=== PATIENT | female | born 1940 | race Caucasian/White ===

== ENCOUNTER 2016-08-12 16:37 | Emergency (ER) | payer OTHER, MEDICAID ==
--- NOTE | 2016-08-12 16:53 | EDPHY ---
H & P Time Seen by Provider: 08/12/16 16:51 HPI/ROS: CHIEF COMPLAINT: Passing stool through the vagina HISTORY OF PRESENT ILLNESS: This 76-year-old woman has a history of bladder prolapse but noted since 12/05 this morning 5 episodes where she had combined stool and urine, she thinks she might have been passing stool through her vagina. This is due to the simultaneous stool and urine. She called her primary care physician office who requested that she go the emergency department. Patient denies blood or melena, denies dysuria, denies fever or chills. No vomiting or abdominal pain. No dysuria. The triage notes mention "incontinence " but the patient denies this. No loss of control, no back pain, no weakness or numbness of groin or legs. REVIEW OF SYSTEMS: Eye: no change in vision ENT: no sore throat Cardiac: no chest pain or syncope Pulmonary: no cough or SOB Abdomen: HPI Musculoskeletal: no back pain Skin: no rash Neuro: no headache Constitutional: no fever : no urinary symptoms A comprehensive 10 point review of systems is otherwise negative aside from elements mentioned in the history of present illness. PAST MEDICAL HISTORY: Includes hypertension, TIA and stroke. History and physical dated 11/09/2015 personally reviewed by myself. 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 Mitral valve regurgitation. 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 No drugs or alcohol. General Appearance: Alert and conversant, cooperative. Eyes: No scleral icterus. ENT, Mouth: Normal mucous membranes. Respiratory: Normal respiratory effort, breath sounds equal, lungs are clear to auscultation. Cardiovascular: Regular rate and rhythm. Gastrointestinal: Abdomen is soft and non tender. Neurological: Alert and oriented x3. Normally conversant. Face symmetric, normal movement and sensation in all extremities. Ambulatory. Skin: Warm and dry, no rashes. Musculoskeletal: No peripheral edema and no joint swelling. Psychiatric: Not agitated. External rectal is normal. External vaginal is normal. Emergency Department course/MDM: Plan for UA, CT pelvis with IV contrast to evaluate for possibility of fistula. Per CT tolerated IV contrast in August of 2015 well after getting premedicated with IV Solu-Medrol and Benadryl. Will do the same today and plan for CT with IV contrast. 2000: Results discussed the patient. Warned needs Urology follow-up for thickened bladder to r/o malignancy. Does not appear to have fistula. Referred back to PCP. Patient tells me she had similar symptoms in the past when her prolapse was more prominent. Smoking Status: Never smoked Constitutional: Initial Vital Signs Temperature (C) 36.5 C 08/12/16 16:45 Heart Rate 83 08/12/16 16:45 Respiratory Rate 18 08/12/16 16:45 Blood Pressure 199/95 H 08/12/16 16:45 O2 Sat (%) 93 08/12/16 16:45 O2 Delivery Mode Room Air Allergies/Adverse Reactions: aspirin Allergy (Verified 08/12/16 16:51) Barbiturates Allergy (Verified 08/12/16 16:51) chloramphenicol Allergy (Verified 08/12/16 16:51) corn Allergy (Verified 08/12/16 16:51) Iodine and Iodide Containing Produc Allergy (Verified 08/12/16 16:51) lactose Allergy (Verified 08/12/16 16:51) Latex, Natural Rubber Allergy (Verified 08/12/16 16:51) mercury (elemental) Allergy (Verified 08/12/16 16:51) morphine Allergy (Verified 08/12/16 16:51) Penicillins Allergy (Verified 08/12/16 16:51) Sugars, Metabolically Active Allergy (Verified 08/12/16 16:51) Sulfa (Sulfonamide Antibiotics) Allergy (Verified 08/12/16 16:51) tetracycline Allergy (Verified 08/12/16 16:51) CONTRAST DYES Allergy (Uncoded 07/21/14 15:06) gluten Allergy (Uncoded 07/23/14 11:17) Home Medications: Medication Instructions Recorded Levothyroxine [Synthroid 50 mcg 50 mcg PO DAILY06 #30 tab 08/06/14 (*)] Ascorbic Acid [Vitamin C 500 mg 500 mg PO TID 11/09/15 (*)] Aspirin EC [Aspirin EC 325 mg (*)] 325 mg PO DAILY PRN 11/09/15 Cholecalciferol Vit D3 [Vitamin D3 5,000 units PO HS 11/09/15 (*)] Compounded T3 1 tab PO BID 11/09/15 Herbals/Supplements -Info Only 1 ea PO DAILY 11/09/15 Nattokinase 1 tab PO DAILY 11/10/15 Serratio Plus 1 tab PO DAILY@18 06/04/16 Fluocinonide 0.05% [Lidex 0.05% 1 geraldine TP BID #30 cream 11/12/15 Cream] Losartan Potassium 08/12/16 Medical Decision Making - Diagnostics Imaging: CT normal reviewed with Tan at 7:55 p.m., thickened bladder otherwise negative. No fistula. - Data Points Medications Given: Discontinued Medications Diphenhydramine HCl (Benadryl Injection) 50 mg IVP EDNOW ONE Stop: 08/12/16 18:45 Last Admin: 08/12/16 18:50 Dose: 50 mg Methylprednisolone Sodium Succinate (Solu-Medrol) 125 mg IVP EDNOW ONE Stop: 08/12/16 18:45 Last Admin: 08/12/16 18:50 Dose: 125 mg Departure - Departure Disposition: Home, Routine, Self-Care Clinical Impression: Diarrhea Condition: Good Instructions: Acute Diarrhea (ED) Additional Instructions: normal urinalysis Referrals: Lalita Cook MD [Primary Care Provider] - As per Instructions Vazquez Stroud MD [Medical Doctor] - As per Instructions (See this urologist within the next 2 weeks for thickened bladder seen on Ct scan.)
[2016-08-12 17:47] LABS: COLOR PALE YELLOW; LEUKOCYTE ESTERASE,URINE NEGATIVE (NEGATIVE); NITRITE,URINE NEGATIVE (NEGATIVE)
[2016-08-12] MEDS ORDERED: methylPREDNISolone SOD SUCC 125 MG/2 ML VIAL IVP ONE (18:44)
[2016-08-12] MEDS ORDERED: IOPAMIDOL (ISOVUE-300) 100 ML BTL IV ONE (19:03)
[2016-08-12 20:35] VITALS: BP 123/108; PULSE 91; RESP 20; TEMP 99; O2SAT 98
== END 2016-08-12 20:40 | disposition home or self-care (01) ==
DX: R19.7 Diarrhea, unspecified (principal); I10 Essential (primary) hypertension; Z86.73 Personal history of transient ischemic attack (TIA), and cerebral infarction without residual deficits; Z91.040 Latex allergy status; Z79.82 Long term (current) use of aspirin
CPT/HCPCS: 72193; 96374; 96375; 99285; J1200; Q9967; 82947-QW

== ENCOUNTER → 2016-09-22 | Outpatient (CLI) | payer OTHER, MEDICAID | LOC: BHFA 14:00 | PROVIDERS: ATTEND Internal Medicine Cardiovascular Disease | DX: I34.0 Nonrheumatic mitral (valve) insufficiency (principal) ==

== ENCOUNTER → 2016-10-03 | Outpatient (CLI) | payer OTHER, MEDICAID | LOC: BHFA 13:30 | PROVIDERS: ATTEND Internal Medicine Cardiovascular Disease | DX: I73.9 Peripheral vascular disease, unspecified (principal) ==

== ENCOUNTER → 2016-10-31 | Outpatient (CLI) | payer OTHER, MEDICAID | LOC: BHFA 13:00 | PROVIDERS: ATTEND Internal Medicine Cardiovascular Disease | DX: R94.30 Abnormal result of cardiovascular function study, unspecified (principal) | CPT/HCPCS: 78452; 93017; A9500; J2785 ==

== ENCOUNTER 2017-03-18 20:45 | Inpatient (IN) | payer OTHER, MEDICAID ==
--- NOTE | 2017-03-18 21:00 | CPEKG ---
Heart Rate: 88 RR Interval: 682 P-R Interval: 168 QRSD Interval: 94 QT Interval: 376 QTC Interval: 455 P [place]: 74 QRS [place]: 46 T Wave [place]: 48 EKG Severity - BORDERLINE ECG - EKG Impression: SINUS RHYTHM EKG Impression: BORDERLINE INFERIOR Q WAVES Electronically Signed By: Talia Ramos 18-Mar-2017 22:49:11
[2017-03-18 21:09] LABS: % IMMATURE GRANULYOCYTES 0.4 % (0.0-1.1); ABSOLUTE IMMATURE GRANULOCYTES 0.03 10^3/uL (0.00-0.10); ADD DIFF? NO; ADD MORPH? NO; ADD SCAN? NO; ATYPICAL LYMPHOCYTE FLAG 0 (0-99); FRAGMENT RBC FLAG 0 (0-99); HEMATOCRIT 43.6 % (38.0-47.0); HEMOGLOBIN 15.4 g/dL (12.6-16.3); LEFT SHIFT FLG 0 (0-99); LIPEMIA HEMOLYSIS FLAG 90 (0-99); MEAN CELL HEMOGLOBIN 33.8 pg (27.9-34.1); MEAN CELL HEMOGLOBIN CONCENTR. 35.3 g/dL (32.4-36.7); MEAN CELL VOLUME 95.6 fL (81.5-99.8); MEAN PLATELET VOLUME 9.4 fL (8.7-11.7); PLATELET CLUMPS FLAG 10 (0-99); PLATELET COUNT 196 10^3/uL (150-400); RED BLOOD CELL COUNT 4.56 10^6/uL (4.18-5.33); RED CELL DISTRIBUTION WIDTH 11.9 % (11.5-15.2)
[2017-03-18 21:14] LABS: ALANINE AMINOTRANSFERASE 35 IU/L (9-52); ALBUMIN 4.2 g/dL (3.5-5.0); ALKALINE PHOSPHATASE 93 IU/L (38-126); ANION GAP 14 mEq/L (8-16); ASPARTATE AMINOTRANSFERASE 34 IU/L (14-46); CALCIUM 10.2 mg/dL (8.5-10.4); CARBON DIOXIDE 23 mEq/l (22-31); CHLORIDE 100 mEq/L (97-110); CREATININE 0.7 mg/dL (0.6-1.0); GLOMERULAR FILTRATION RATE > 60; GLUCOSE 136 mg/dL (70-100); POTASSIUM 4.3 mEq/L (3.5-5.2); SODIUM 137 mEq/L (134-144); TOTAL PROTEIN 7.3 g/dL (6.3-8.2)
--- NOTE | 2017-03-18 21:31 | EDPHY ---
H & P Time Seen by Provider: 03/18/17 21:14 HPI/ROS: CHIEF COMPLAINT: Nausea and vomiting HISTORY OF PRESENT ILLNESS: The patient is a 77-year-old female with multiple medical problems including carotid embolism, CVA and hypertension who presents to the emergency department with syncope. The patient underwent bunionectomy in the office yesterday. She had significant pain last evening and was unable to sleep. When she spoke with the oncology consultant today he told her to take tramadol. She took a dose around noon. After taking the medication she became severely nauseated. She had multiple episodes of vomiting. While vomiting she had episode. This happened twice. She has no chest pain or shortness of breath. At this time her nausea is improved. Her pain is controlled. She has no specific complaints. No focal weakness or numbness. REVIEW OF SYSTEMS: My complete review of systems is negative except as mentioned in the HPI. Past Medical/Surgical History: Includes CVA, hypertension, pyelonephritis, Parker's thyroiditis, carotid embolism Social history: Patient lives at home Smoking Status: Never smoked Physical Exam: Vitals noted. 36.9, 150/101, 97, 20, 95% on room air GENERAL: Well-appearing, in no acute distress, alert. HEENT: Eyes normal to inspection, normal pharynx, no signs of dehydration. NECK: No thyromegaly, no lymphadenopathy, supple. RESPIRATORY: Clear to auscultation bilaterally, no rales, rhonchi or wheezing. CVS: Regular rate and rhythm, no rubs, murmurs, or gallops. ABDOMEN: Soft, nontender, nondistended, no organomegaly. BACK: Normal to inspection, no CVA tenderness. SKIN: Normal color, no rash, warm, dry. No pallor. EXTREMITIES: No pedal edema, no calf tenderness, no Homans sign or cords, no joint swelling. Patient's right foot surgical site is clean dry and intact. NEURO/PSYCH: Alert and oriented x3, normal mood and affect, normal motor sensory exam. No obvious cranial nerve deficit. Constitutional: Initial Vital Signs Temperature (C) 36.9 C 03/18/17 20:47 Heart Rate 97 03/18/17 20:47 Respiratory Rate 20 03/18/17 20:47 Blood Pressure 150/101 H 03/18/17 20:47 O2 Sat (%) 95 03/18/17 20:47 O2 Delivery Mode Room Air Allergies/Adverse Reactions: aspirin Allergy (Verified 03/18/17 21:04) Barbiturates Allergy (Verified 03/18/17 21:04) chloramphenicol Allergy (Verified 03/18/17 21:04) corn Allergy (Verified 03/18/17 21:04) Iodine and Iodide Containing Produc Allergy (Verified 03/18/17 21:04) lactose Allergy (Verified 03/18/17 21:04) Latex, Natural Rubber Allergy (Verified 03/18/17 21:04) mercury (elemental) Allergy (Verified 03/18/17 21:04) morphine Allergy (Verified 03/18/17 21:04) Penicillins Allergy (Verified 03/18/17 21:04) Sugars, Metabolically Active Allergy (Verified 03/18/17 21:04) Sulfa (Sulfonamide Antibiotics) Allergy (Verified 03/18/17 21:04) tetracycline Allergy (Verified 03/18/17 21:04) CONTRAST DYES Allergy (Uncoded 03/18/17 21:04) gluten Allergy (Uncoded 03/18/17 21:04) Home Medications: Medication Instructions Recorded Ascorbic Acid [Vitamin C 500 mg 500 mg PO TID 11/09/15 (*)] Cholecalciferol Vit D3 [Vitamin D3 5,000 units PO HS 11/09/15 (*)] Herbals/Supplements -Info Only 1 ea PO DAILY 11/09/15 Nattokinase 1 tab PO DAILY 11/10/15 Serratio Plus 1 tab PO DAILY@18 11/10/15 BIOTIN 03/18/17 Berberine 03/18/17 K2 Plus D3 Tablet 03/18/17 L Arginine 03/18/17 Lumbrokinase 03/18/17 Nicotinamide Zcf Tablet 03/18/17 Red Yeast Rice 03/18/17 Serapeptase 03/18/17 Telmisartan 03/18/17 Ubiquinol 03/18/17 Vitamin B Complex 03/18/17 Medical Decision Making ED Course/Re-evaluation: In the emergency department I discussed possible etiologies with the patient. I answered all her questions. IV was placed. Laboratory studies and EKG were obtained. Patient was given normal saline 500 mL IV. She is given Zofran 4 mg IV. EKG shows normal sinus rhythm, normal rate, normal axis, normal intervals. There are no ST or T-wave abnormalities. EKG is normal as interpreted by me. Differential Diagnosis: My differential includes but is not limited to dissection, aneurysm, syncope, ACS, acute VT, dysrhythmia, vasovagal episode, medication reaction, electrolyte abnormality, sugar abnormality - Data Points Laboratory Results: Laboratory Results 03/18/17 20:45 03/18/17 20:45 03/18/17 03/18/17 20:45 20:45 WBC 8.54 10^3/uL 10^3/uL (3.80-9.50) RBC 4.56 10^6/uL 10^6/uL (4.18-5.33) Hgb 15.4 g/dL g/dL (12.6-16.3) Hct 43.6 % % (38.0-47.0) MCV 95.6 fL fL (81.5-99.8) MCH 33.8 pg pg (27.9-34.1) MCHC 35.3 g/dL g/dL (32.4-36.7) RDW 11.9 % % (11.5-15.2) Plt Count 196 10^3/uL 10^3/uL (150-400) MPV 9.4 fL fL (8.7-11.7) Neut % (Auto) 80.0 % H % (39.3-74.2) Lymph % (Auto) 12.3 % L % (15.0-45.0) [place] % (Auto) 7.0 % % (4.5-13.0) Eos % (Auto) 0.1 % L % (0.6-7.6) Baso % (Auto) 0.2 % L % (0.3-1.7) Nucleat RBC Rel Count 0.0 % % (0.0-0.2) Absolute Neuts (auto) 6.83 10^3/uL H 10^3/uL (1.70-6.50) Absolute Lymphs (auto) 1.05 10^3/uL 10^3/uL (1.00-3.00) Absolute Monos (auto) 0.60 10^3/uL 10^3/uL (0.30-0.80) Absolute Eos (auto) 0.01 10^3/uL L 10^3/uL (0.03-0.40) Absolute Basos (auto) 0.02 10^3/uL 10^3/uL (0.02-0.10) Absolute Nucleated RBC 0.00 10^3/uL 10^3/uL (0-0.01) Immature Gran % 0.4 % % (0.0-1.1) Immature Gran # 0.03 10^3/uL 10^3/uL (0.00-0.10) Sodium 137 mEq/L mEq/L (134-144) Potassium 4.3 mEq/L mEq/L (3.5-5.2) Chloride 100 mEq/L mEq/L (97-110) Carbon Dioxide 23 mEq/l mEq/l (22-31) Anion Gap 14 mEq/L mEq/L (8-16) BUN 19 mg/dL mg/dL (7-23) Creatinine 0.7 mg/dL mg/dL (0.6-1.0) Estimated GFR > 60 Glucose 136 mg/dL H mg/dL (70-100) Calcium 10.2 mg/dL mg/dL (8.5-10.4) Total Bilirubin 1.0 mg/dL mg/dL (0.1-1.4) AST 34 IU/L IU/L (14-46) ALT 35 IU/L IU/L (9-52) Alkaline Phosphatase 93 IU/L IU/L (38-126) Total Protein 7.3 g/dL g/dL (6.3-8.2) Albumin 4.2 g/dL g/dL (3.5-5.0) Departure - Departure Disposition: [facility] Inpatient Acute Clinical Impression: Vomiting Qualifiers: Vomiting type: unspecified Vomiting Intractability: non-intractable Nausea presence: with nausea Qualified Code(s): R11.2 - Nausea with vomiting, unspecified Syncope Qualifiers: Syncope type: unspecified Qualified Code(s): R55 - Syncope and collapse Condition: Good Referrals: Patient,NotPresent [Unknown] - As per Instructions
[2017-03-18] MEDS ORDERED: NS 500 ML IV ONE (21:39)
[2017-03-18] MEDS ORDERED: ONDANSETRON 4 MG/2 ML VIAL IVP ONE (21:39)
[2017-03-18] MEDS ORDERED: ONDANSETRON DISINTEGRATING 4 MG TAB PO PRN (22:40)
[2017-03-18] MEDS ORDERED: ONDANSETRON 4 MG/2 ML VIAL IVP PRN (22:40)
[2017-03-18] MEDS ORDERED: NS 1,000 ML IV ONE (22:40)
[2017-03-19] MEDS ORDERED: CEPHALEXIN 500 MG CAP PO ONE (00:03)
[2017-03-19] MEDS: CEPHALEXIN 500 MG CAP PO SCH ×4 (00:05→21:34)
--- NOTE | 2017-03-19 01:44 | PDGENHP ---
History and Physical - Chief Complaint Syncope - History of Present Illness 77 yo F who underwent bunion removal from R foot on day prior to presentation comes to ED after episode of syncope. Patient had bunion removed from R foot on 03/18. She tried tramadol for pain and shortly after experienced severe vomiting for several hours. During one of these episodes of vomiting, she lost consciousness. She returned to baseline status rapidly after LOC and denies chest pain, shaking movements, or post-ictal state. At the time of my evaluation patient was asymptomatic aside from R foot pain at the site of her surgery. History Information - Allergies/Home Medication List Allergies/Adverse Reactions: aspirin Allergy (Verified 03/18/17 21:04) Barbiturates Allergy (Verified 03/18/17 21:04) chloramphenicol Allergy (Verified 03/18/17 21:04) corn Allergy (Verified 03/18/17 21:04) Iodine and Iodide Containing Produc Allergy (Verified 03/18/17 21:04) lactose Allergy (Verified 03/18/17 21:04) Latex, Natural Rubber Allergy (Verified 03/18/17 21:04) mercury (elemental) Allergy (Verified 03/18/17 21:04) morphine Allergy (Verified 03/18/17 21:04) Penicillins Allergy (Verified 03/18/17 21:04) Sugars, Metabolically Active Allergy (Verified 03/18/17 21:04) Sulfa (Sulfonamide Antibiotics) Allergy (Verified 03/18/17 21:04) tetracycline Allergy (Verified 03/18/17 21:04) CONTRAST DYES Allergy (Uncoded 03/18/17 21:04) gluten Allergy (Uncoded 03/18/17 21:04) Home Medications: Ascorbic Acid [Vitamin C 500 mg (*)] 500 mg PO TID 11/09/15 [Last Taken Unknown] Cholecalciferol Vit D3 [Vitamin D3 (*)] 5,000 units PO HS 11/09/15 [Last Taken Unknown] Herbals/Supplements -Info Only 1 ea PO DAILY 11/09/15 [Last Taken Unknown] Nattokinase 1 tab PO DAILY 11/10/15 [Last Taken Unknown] Serratio Plus 1 tab PO DAILY@18 11/10/15 [Last Taken Unknown] BIOTIN 03/18/17 [Last Taken Unknown] Berberine 03/18/17 [Last Taken Unknown] K2 Plus D3 Tablet 03/18/17 [Last Taken Unknown] L Arginine 03/18/17 [Last Taken Unknown] Lumbrokinase 03/18/17 [Last Taken Unknown] Nicotinamide Zcf Tablet 03/18/17 [Last Taken Unknown] Red Yeast Rice 03/18/17 [Last Taken Unknown] Serapeptase 03/18/17 [Last Taken Unknown] Telmisartan 03/18/17 [Last Taken Unknown] Ubiquinol 03/18/17 [Last Taken Unknown] Vitamin B Complex 03/18/17 [Last Taken Unknown] I have personally reviewed and updated: family history, medical history - Past Medical History arthritis - Surgical History Additional surgical history: Bunion removal R foot 03/18/17 - Family History Positive for: cancer, diabetes type II, CAD - Social History Smoking Status: Never smoked Review of Systems Review of Systems: ROS: 10pt was reviewed & negative except for what was stated in HPI & below Physical Exam Physical Exam: Temp Pulse Resp BP Pulse Ox 36.6 C 81 16 149/80 H 96 03/18/17 23:55 03/18/17 23:55 03/18/17 23:55 03/18/17 23:55 03/18/17 23:55 O2 (L/minute) 2 Constitutional: no apparent distress, appears nourished Eyes: PERRL, EOMI Ears, Nose, Mouth, Throat: moist mucous membranes, no oral mucosal ulcers Cardiovascular: regular rate and rhythym, systolic murmur Respiratory: no respiratory distress, clear to auscultation Gastrointestinal: normoactive bowel sounds, soft, non-tender abdomen Skin: warm, other (R foot in bandage) Musculoskeletal: full muscle strength, no muscle tenderness Neurologic: AAOx3, CN II-XII Intact Psychiatric: interacting appropriately, not anxious Lab Data & Imaging Review 03/18/17 20:45 03/18/17 20:45 WBC 8.54 10^3/uL (3.80-9.50) 03/18/17 20:45 RBC 4.56 10^6/uL (4.18-5.33) 03/18/17 20:45 Hgb 15.4 g/dL (12.6-16.3) 03/18/17 20:45 Hct 43.6 % (38.0-47.0) 03/18/17 20:45 MCV 95.6 fL (81.5-99.8) 03/18/17 20:45 MCH 33.8 pg (27.9-34.1) 03/18/17 20:45 MCHC 35.3 g/dL (32.4-36.7) 03/18/17 20:45 RDW 11.9 % (11.5-15.2) 03/18/17 20:45 Plt Count 196 10^3/uL (150-400) 03/18/17 20:45 MPV 9.4 fL (8.7-11.7) 03/18/17 20:45 Neut % (Auto) 80.0 % (39.3-74.2) H 03/18/17 20:45 Lymph % (Auto) 12.3 % (15.0-45.0) L 03/18/17 20:45 [place] % (Auto) 7.0 % (4.5-13.0) 03/18/17 20:45 Eos % (Auto) 0.1 % (0.6-7.6) L 03/18/17 20:45 Baso % (Auto) 0.2 % (0.3-1.7) L 03/18/17 20:45 Nucleat RBC Rel Count 0.0 % (0.0-0.2) 03/18/17 20:45 Absolute Neuts (auto) 6.83 10^3/uL (1.70-6.50) H 03/18/17 20:45 Absolute Lymphs (auto) 1.05 10^3/uL (1.00-3.00) 03/18/17 20:45 Absolute Monos (auto) 0.60 10^3/uL (0.30-0.80) 03/18/17 20:45 Absolute Eos (auto) 0.01 10^3/uL (0.03-0.40) L 03/18/17 20:45 Absolute Basos (auto) 0.02 10^3/uL (0.02-0.10) 03/18/17 20:45 Absolute Nucleated RBC 0.00 10^3/uL (0-0.01) 03/18/17 20:45 Immature Gran % 0.4 % (0.0-1.1) 03/18/17 20:45 Immature Gran # 0.03 10^3/uL (0.00-0.10) 03/18/17 20:45 Sodium 137 mEq/L (134-144) 03/18/17 20:45 Potassium 4.3 mEq/L (3.5-5.2) 03/18/17 20:45 Chloride 100 mEq/L (97-110) 03/18/17 20:45 Carbon Dioxide 23 mEq/l (22-31) 03/18/17 20:45 Anion Gap 14 mEq/L (8-16) 03/18/17 20:45 BUN 19 mg/dL (7-23) 03/18/17 20:45 Creatinine 0.7 mg/dL (0.6-1.0) 03/18/17 20:45 Estimated GFR > 60 03/18/17 20:45 Glucose 136 mg/dL (70-100) H 03/18/17 20:45 Calcium 10.2 mg/dL (8.5-10.4) 03/18/17 20:45 Total Bilirubin 1.0 mg/dL (0.1-1.4) 03/18/17 20:45 AST 34 IU/L (14-46) 03/18/17 20:45 ALT 35 IU/L (9-52) 03/18/17 20:45 Alkaline Phosphatase 93 IU/L (38-126) 03/18/17 20:45 Troponin I < 0.012 ng/mL (0.000-0.034) 03/18/17 20:45 Total Protein 7.3 g/dL (6.3-8.2) 03/18/17 20:45 Albumin 4.2 g/dL (3.5-5.0) 03/18/17 20:45 Visualized and Interpreted EKG results: Yes EKG Interpretation: Positive for: normal sinsus rhythm Assessment & Plan Assessment: 77 yo F presents after episode of syncope in the setting of vomiting after taking Tramadol. Plan: 1. Syncope - Clinical picture consistent with vasovagal syncope in the setting of severe vomiting precipitated by Tramadol. No symptoms to suggest cardiac or neurologic cause of syncope. Laboratory work-up and ECG on admission unremarkable. - Admit for overnight observation - Monitor on telemetry - Continue IVF, avoid further opiate medications 2. Vomiting - Now resolved, caused by opiate pain medication. Would avoid further opiates as able. Diet - Regular Code - Full Ppx - LMWH Dispo - Admit to observation status
[2017-03-19 08:25] LABS: % IMMATURE GRANULYOCYTES 0.3 % (0.0-1.1); ABSOLUTE IMMATURE GRANULOCYTES 0.02 10^3/uL (0.00-0.10); ADD DIFF? NO; ADD MORPH? NO; ADD SCAN? NO; ATYPICAL LYMPHOCYTE FLAG 10 (0-99); FRAGMENT RBC FLAG 0 (0-99); HEMATOCRIT 38.9 % (38.0-47.0); HEMOGLOBIN 13.6 g/dL (12.6-16.3); LEFT SHIFT FLG 0 (0-99); LIPEMIA HEMOLYSIS FLAG 90 (0-99); MEAN CELL HEMOGLOBIN 33.2 pg (27.9-34.1); MEAN CELL VOLUME 94.9 fL (81.5-99.8); PLATELET CLUMPS FLAG 10 (0-99); PLATELET COUNT 166 10^3/uL (150-400); RED CELL DISTRIBUTION WIDTH 11.9 % (11.5-15.2)
[2017-03-19 08:48] LABS: ANION GAP 9 mEq/L (8-16); CALCIUM 9.2 mg/dL (8.5-10.4); CARBON DIOXIDE 24 mEq/l (22-31); CHLORIDE 106 mEq/L (97-110); CREATININE 0.6 mg/dL (0.6-1.0); GLOMERULAR FILTRATION RATE > 60; GLUCOSE 112 mg/dL (70-100); POTASSIUM 3.7 mEq/L (3.5-5.2); SODIUM 139 mEq/L (134-144)
[2017-03-19] MEDS ORDERED: ENOXAPARIN 30 MG/0.3 ML SYR SC SCH (09:00)
--- NOTE | 2017-03-19 10:38 | HOSPPROG ---
Hospitalist Progress Note Assessment/Plan: first encounter with this patient 77 yo F with recent right foot bunion removal admitted for likely vasovagal syncope following N/V after Tramadol use. W/u has been unremarkable. No events on telemetry. No further N/V. Nursing and patient report that she has significant generalized weakness and is unsafe to go home. PT/OT consults pending. Will likely need rehab #Vasovagal Syncope due to N/V due to opiates -avoid opiates -hemodynamically stable -No further need for IVF #Nausea and Vomiting: resolved. #Generalized weakness. -PT/OT to eval. #Recent right foot bunion removal -empirically on Keflex, continue for now #DVT proph: Lovenox Dispo: change to inpatient. Subjective: no further n/v. no events on telemetry. Denies CP or SOB. Denies abd symptoms. However, feels weak. Does not feel safe to go home. Objective: Vital Signs Temp Pulse Resp BP Pulse Ox 36.8 C 79 18 142/82 H 95 03/19/17 07:26 03/19/17 07:26 03/19/17 07:26 03/19/17 07:26 03/19/17 07:26 Laboratory Results 03/19/17 08:16 03/19/17 08:16 03/18/17 03/19/17 03/20/17 05:59 05:59 05:59 Intake Total 200 Output Total 300 Balance -100 - Physical Exam Constitutional: no apparent distress, appears nourished, not in pain Eyes: PERRL, anicteric sclera, EOMI Ears, Nose, Mouth, Throat: moist mucous membranes, hearing normal Cardiovascular: regular rate and rhythym, no murmur, rub, or gallop Respiratory: no respiratory distress, no rales or rhonchi, clear to auscultation Gastrointestinal: soft, non-tender abdomen Skin: warm Musculoskeletal: generalized weakness Neurologic: AAOx3 Psychiatric: interacting appropriately, not anxious, not encephalopathic ICD10 Worksheet Patient Problems: Problems Problem Status Onset Syncope Acute Vomiting Acute CVA (cerebral vascular accident) Acute Carotid stenosis Acute Cellulitis Acute Peripheral vascular disease Acute
--- NOTE | 2017-03-19 12:49 | PDMN ---
Medical Necessity Medical necessity: change to IP; los>2mn r/t likely vasovagal syncope r/t N/V with opioid use s/p bunionectomy; continues with significant generalized weakness and unsafe for discharge; requires PT/OT evals and safe discharge dispo ; hx arthritis; per order and progress note 03/19/17
[2017-03-19] MEDS: ACETAMINOPHEN 325 MG TAB PO PRN ×2 (14:23→20:02)
--- NOTE | 2017-03-19 16:30 | ASMTCASEMG ---
Living Arrangements What is your living Answers: Alone arrangement? Who do you live with? Type Of Residence What kind of residence do Answers: House you live in? Discharge Plan Comments Coordination Status Comments Notes: Chart reviewed and spoke w/ JESUSITA Sanches. Pt is a 77 y/o female admitted w/ syncope. Pt lives alone independently prior to coming to the hospital. OT is recommedning SNF vs inpatient rehab. PT is recommending inpatient rehab. Inpatient rehab has been ordered and awaiting to assess. CM to follow. Date Signed: 03/19/2017 04:29 PM Electronically Signed By:ADAM Schroeder
[2017-03-19] MEDS: IBUPROFEN 200 MG TAB PO SCH (17:39)
[2017-03-20] MEDS: IBUPROFEN 200 MG TAB PO SCH ×4 (00:11→17:48)
[2017-03-20] MEDS: ACETAMINOPHEN 325 MG TAB PO PRN ×3 (01:02→17:49)
[2017-03-20] MEDS: CEPHALEXIN 500 MG CAP PO SCH ×3 (08:46→21:00)
[2017-03-20] MEDS: ENOXAPARIN 40 MG/0.4 ML SYR SC SCH (08:46)
--- NOTE | 2017-03-20 10:04 | HOSPPROG ---
Hospitalist Progress Note Assessment/Plan: first encounter with this patient 77 yo F with recent right foot bunion removal admitted for likely vasovagal syncope following N/V after Tramadol use. W/u has been unremarkable. No events on telemetry. No further N/V. Nursing and patient report that she has significant generalized weakness and is unsafe to go home. PT/OT recommend inpatient rehab and coordination of this is pending. #Vasovagal Syncope due to N/V due to opiates -avoid opiates -hemodynamically stable -No further need for IVF #Nausea and Vomiting: resolved. #Generalized weakness. -PT/OT following #Recent right foot bunion removal -empirically on Keflex, continue for now -pain mgmt, cont with current regimen #DVT proph: Lovenox Dispo: Inpt. Discharge once placement to inpt rehab is arranged Subjective: some right foot pain overnight, now with good control. No CP or SOB. Objective: Vital Signs Temp Pulse Resp BP Pulse Ox 36.5 C 74 16 126/83 H 94 03/20/17 03:40 03/20/17 03:40 03/20/17 03:40 03/20/17 03:40 03/20/17 03:40 03/19/17 03/20/17 03/21/17 05:59 05:59 05:59 Intake Total 1350 Output Total 400 Balance 950 - Physical Exam Constitutional: no apparent distress, appears nourished, not in pain Eyes: PERRL, anicteric sclera, EOMI Ears, Nose, Mouth, Throat: hearing normal Cardiovascular: regular rate and rhythym, no murmur, rub, or gallop Respiratory: no respiratory distress, no rales or rhonchi, clear to auscultation Gastrointestinal: normoactive bowel sounds, soft, non-tender abdomen Skin: warm Neurologic: AAOx3 Psychiatric: interacting appropriately, not anxious, not encephalopathic ICD10 Worksheet Patient Problems: Problems Problem Status Onset Syncope Acute Vomiting Acute CVA (cerebral vascular accident) Acute Carotid stenosis Acute Cellulitis Acute Peripheral vascular disease Acute
--- NOTE | 2017-03-20 14:27 | GDS ---
[f rep st] TRANSFER SUMMARY SUBJECTIVE: The patient presents postop 4 days for correction of bunion right lower extremity. Skin edges well coapted. No clinical signs of infection. OBJECTIVE: Objectively, she has minimal edema, mild to moderate pain, but it is controlled with Tyle nol and ibuprofen at this point. She had taken Ultram for pain postoperatively, resulting in nausea, some dehydration, and she did have a syncope episode. At this point, she is rehydrated, looking nilam y good. She is alert and oriented today. Vascular pulses are intact 1/4, with good capillary flow t o the digits x5. All sutures are intact. There was a very mild amount of bleeding postoperatively, no erythema, no drainage today at the incision. I did a sterile re-dress today, very gentle compression over the area. She may ambulate to tolerance . I did discuss walking with a walker for a short time might not be a bad idea for the patient, just to keep her balance. PLAN: Plan currently is for her to go to a rehab facility for the next few weeks. I will follow her up at the rehab facility in approximately 8 days for suture removal. She has my cell phone number f or 24 hour call should she have any problems or questions. This is a direct line to me 29/12. /[id number]/MODL
--- NOTE | 2017-03-20 15:23 | ASMTCMCOM ---
CM Note CM Note Notes: [facility] inpatient rehab has declined acceptance into program. CM met w/ pt for dispo planning. Pt reports that she recieves 6hrs of non skilled HC a week. Pt reports having supportive friends in the community. Pt would like to go to a SNF. Pt would like CM to make a referral to [facility], [facility] and [facility]. CM faxed referral to facilities. ULTC-100 completed and faxed over to [facility]. ULTC-100 document is in pts chart. CM to follow. Date Signed: 03/20/2017 03:22 PM Electronically Signed By:ADAM Schroeder
[2017-03-21] MEDS: IBUPROFEN 200 MG TAB PO SCH ×5 (00:15→22:20)
[2017-03-21] MEDS: ENOXAPARIN 40 MG/0.4 ML SYR SC SCH (09:00)
[2017-03-21] MEDS ORDERED: NATURE THROID PO SCH (09:00)
[2017-03-21] MEDS: CEPHALEXIN 500 MG CAP PO SCH ×3 (09:01→20:28)
[2017-03-21] MEDS: VITAMIN B COMPLEX 1 EA CAP/TAB PO SCH (09:01)
[2017-03-21] MEDS: ASCORBIC ACID 500 MG TAB PO SCH ×3 (09:01→20:28)
[2017-03-21] MEDS: NATURE THROID PO SCH (09:01)
[2017-03-21] MEDS: TELMISARTAN 40 MG TAB PO SCH (09:02)
--- NOTE | 2017-03-21 11:42 | HOSPPROG ---
Hospitalist Progress Note Assessment/Plan: 77 yo F with recent right foot bunion removal admitted for likely vasovagal syncope following N/V after Tramadol use. W/u has been unremarkable. No events on telemetry. No further N/V. Nursing and patient report that she has significant generalized weakness and is unsafe to go home. PT/OT recommend inpatient rehab. [facility] Inpatient declined. She is waiting for placement #Vasovagal Syncope due to N/V due to opiates -avoid opiates -hemodynamically stable -No further need for IVF #Nausea and Vomiting: resolved. #Generalized weakness. -PT/OT following #Recent right foot bunion removal -empirically on Keflex, continue for now -pain mgmt, cont with current regimen, avoding narcotics -suture removal around 03/27. Podiatry to follow. #HTN: restart ARB #Hypothyroidism: restart home thyroid #DVT proph: Lovenox Dispo: Inpt. Discharge once placement to inpt rehab is arranged Subjective: No complaints. No CP or SOB. No N/V. Awaiting placement Objective: Vital Signs Temp Pulse Resp BP Pulse Ox 36.6 C 77 18 162/67 H 95 03/21/17 04:00 03/21/17 04:00 03/21/17 04:00 03/21/17 04:00 03/21/17 04:00 03/20/17 03/21/17 03/22/17 05:59 05:59 05:59 Intake Total 1350 1850 Output Total 400 1000 Balance 950 850 - Physical Exam Constitutional: no apparent distress Eyes: PERRL, EOMI Ears, Nose, Mouth, Throat: moist mucous membranes, hearing normal Cardiovascular: regular rate and rhythym, No irregularly irregular, No edema Respiratory: no respiratory distress, no rales or rhonchi, clear to auscultation Gastrointestinal: normoactive bowel sounds, soft, non-tender abdomen Skin: warm Musculoskeletal: generalized weakness Neurologic: AAOx3 Psychiatric: interacting appropriately, not anxious, not encephalopathic ICD10 Worksheet Patient Problems: Problems Problem Status Onset Syncope Acute Vomiting Acute CVA (cerebral vascular accident) Acute Carotid stenosis Acute Cellulitis Acute Peripheral vascular disease Acute
[2017-03-21] MEDS: CHOLECALCIFEROL VIT D3 1,000 UNITS TAB PO SCH (20:28)
[2017-03-22] MEDS: IBUPROFEN 200 MG TAB PO SCH ×5 (07:53→22:59)
[2017-03-22] MEDS: TELMISARTAN 40 MG TAB PO SCH (09:12)
[2017-03-22] MEDS: ENOXAPARIN 40 MG/0.4 ML SYR SC SCH (09:13)
[2017-03-22] MEDS: ASCORBIC ACID 500 MG TAB PO SCH ×3 (09:13→20:35)
[2017-03-22] MEDS: CEPHALEXIN 500 MG CAP PO SCH ×3 (09:13→20:35)
[2017-03-22] MEDS: VITAMIN B COMPLEX 1 EA CAP/TAB PO SCH (09:13)
[2017-03-22] MEDS: NATURE THROID PO SCH (09:26)
--- NOTE | 2017-03-22 13:32 | HOSPPROG ---
Hospitalist Progress Note Assessment/Plan: 77 yo F with recent right foot bunion removal admitted for likely vasovagal syncope following N/V after Tramadol use. W/u has been unremarkable. No events on telemetry. No further N/V. Nursing and patient report that she has significant generalized weakness and is unsafe to go home. PT/OT recommend inpatient rehab. [facility] Inpatient declined. She is waiting for placement #Vasovagal Syncope due to N/V due to opiates -avoid opiates -hemodynamically stable -No further need for IVF #Nausea and Vomiting: resolved. #Generalized weakness. -PT/OT following #Recent right foot bunion removal -empirically on Keflex, continue for now -pain mgmt, cont with current regimen, avoding narcotics -suture removal around 03/27. Podiatry to follow. #HTN: restarted ARB on 03/22. BP is labile, will not increase meds at this time. #Hypothyroidism: restart home thyroid #DVT proph: Lovenox Dispo: Inpt. Discharge once placement to inpt rehab is arranged . Awaiting placement Subjective: BP is better but labile. othewise doing fine. waiting for placement. Objective: Vital Signs Temp Pulse Resp BP Pulse Ox 36.4 C 87 16 149/93 H 91 L 03/22/17 11:46 03/22/17 11:46 03/22/17 11:46 03/22/17 11:46 03/22/17 11:46 03/21/17 03/22/17 03/23/17 05:59 05:59 05:59 Intake Total 1850 800 Output Total 1000 Balance 850 800 - Physical Exam Constitutional: no apparent distress Eyes: PERRL Ears, Nose, Mouth, Throat: moist mucous membranes, hearing normal Cardiovascular: regular rate and rhythym, no murmur, rub, or gallop Respiratory: no respiratory distress, no rales or rhonchi Gastrointestinal: soft, non-tender abdomen Skin: warm Musculoskeletal: generalized weakness Neurologic: AAOx3 Psychiatric: interacting appropriately, not anxious, not encephalopathic ICD10 Worksheet Patient Problems: Problems Problem Status Onset Syncope Acute Vomiting Acute CVA (cerebral vascular accident) Acute Carotid stenosis Acute Cellulitis Acute Peripheral vascular disease Acute
[2017-03-22] MEDS: CHOLECALCIFEROL VIT D3 1,000 UNITS TAB PO SCH (20:35)
[2017-03-23] MEDS: IBUPROFEN 200 MG TAB PO SCH ×3 (08:03→17:34)
[2017-03-23] MEDS: ENOXAPARIN 40 MG/0.4 ML SYR SC SCH (08:04)
[2017-03-23] MEDS: CEPHALEXIN 500 MG CAP PO SCH ×3 (08:04→21:12)
[2017-03-23] MEDS: ASCORBIC ACID 500 MG TAB PO SCH ×3 (08:04→21:11)
[2017-03-23] MEDS: TELMISARTAN 40 MG TAB PO SCH (08:05)
[2017-03-23] MEDS: VITAMIN B COMPLEX 1 EA CAP/TAB PO SCH (08:06)
[2017-03-23] MEDS: NATURE THROID PO SCH (08:08)
--- NOTE | 2017-03-23 10:22 | HOSPPROG ---
Hospitalist Progress Note Assessment/Plan: #Vasovagal syncope: in the setting of N/V and opiates. No ischemic EKG changes #h/o MR: euvolemic #h/o CVAs/TIAs: not on antiplatelet or statin, per her choice #h/o PVD: she does not want to take antiplatelet or statin #Bunion removal: s/p 03/18. Keflex. Suture removal 03/27 #Accelerated HTN: on sartan. Suggested adding Norvasc, but she declined, I explained risk for CVA/[place] and she acknowledged #Deconditioning: awaiting insurance clearance for rehab #DVT ppx: lovenox #Disp: DC tomorrow with PT once caregivers available Subjective: no ALLAN or chest pain Objective: Vital Signs Temp Pulse Resp BP Pulse Ox 36.6 C 81 18 176/96 H 93 03/23/17 07:55 03/23/17 07:55 03/23/17 07:55 03/23/17 07:55 03/23/17 07:55 03/22/17 03/23/17 03/24/17 05:59 05:59 05:59 Intake Total 800 550 Output Total 2600 1000 Balance 800 -2050 -1000 - Physical Exam Constitutional: no apparent distress Eyes: PERRL Ears, Nose, Mouth, Throat: moist mucous membranes Cardiovascular: regular rate and rhythym, systolic murmur, No edema Respiratory: no respiratory distress, No expiratory wheeze, No inspiratory crackles Gastrointestinal: normoactive bowel sounds Genitourinary: no bladder fullness Skin: warm Musculoskeletal: other (right foot dressed. No purulence) Neurologic: AAOx3, CN II-XII Intact Psychiatric: interacting appropriately ICD10 Worksheet Patient Problems: Problems Problem Status Onset Syncope Acute Vomiting Acute CVA (cerebral vascular accident) Acute Carotid stenosis Acute Cellulitis Acute Peripheral vascular disease Acute
--- NOTE | 2017-03-23 14:38 | PDIAF ---
- Diagnosis Diagnosis: syncope Code Status: Full Code - Medication Management Discharge Medications: Medications to Continue on Transfer Ascorbic Acid [Vitamin C 500 mg (*)] 500 mg PO TID 11/09/15 [Last Taken Unknown] Cholecalciferol Vit D3 [Vitamin D3 (*)] 5,000 units PO HS 11/09/15 [Last Taken Unknown] Nattokinase 1 tab PO HS 11/10/15 [Last Taken Unknown] Telmisartan [Micardis 40 mg (*)] 80 mg PO DAILY 03/18/17 [Last Taken 03/18/17] Vitamin B Complex [B Complex] 1 each PO DAILY 03/18/17 [Last Taken Unknown] Cephalexin [Keflex (*)] 500 mg PO TID 03/19/17 [Last Taken 03/18/17 23:00] Herbals/Supplements -Info Only 1 each PO DAILY 03/19/17 [Last Taken Unknown] Nature-Throid 113.75 1 each PO DAILY 03/19/17 [Last Taken 03/18/17] Serrapeptase 1 each PO DAILY 03/19/17 [Last Taken Unknown] Discharge Medications: Refer to the Discharge Home Medication list for PRN reason. - Orders Services needed: Home Care, Physical Therapy Home Care Face to Face: I certify that this patient was under my care and that I had the required [id number] encounter meeting the encounter requirements on the discharge day. My findings support the fact that the patient is homebound as defined in Home Care Face to Face Continued: CMS Chapter 7 Medicare Benefits Manual 30.1.1 , The condition of the patient is such that there exists a normal inability to leave home and consequently, leaving home would require a considerable and taxing effort. Diet Recommendation: no restrictions on diet Diet Texture: Regular Texture Diet - Follow Up Care Current Providers and Referrals: Patient,NotPresent [Unknown] - As per Instructions
--- NOTE | 2017-03-23 15:34 | GDS ---
[f rep st] DISCHARGE SUMMARY DISCHARGE DIAGNOSES: 1. Recent right bunion removal. 2. Vasovagal syncope in the setting of vomiting and opioids. 3. Hypertension. 4. Peripheral vascular disease. 5. History of mitral regurgitation. 6. History of cerebrovascular accident/transient ischemic attack. HPI: A pleasant 77-year-old female with history of CVA, MR, who underwent bunion removal on right foot on 03/18/2017. She tried tramadol for pain and shortly after experienced severe vomiting for several hours. During one of these episodes, she lost consciousness briefly. She denies prodromal chest pain , palpitations, dizziness, or seizure-like activities. HOSPITAL COURSE BY PROBLEM: 1. Syncope, likely vasovagal in setting of severe vomiting and opioids. EKG and troponins negative for ischemia. Will not continue tramadol. 2. Nausea and vomiting: Secondary to opiates. This is resolved. 3. History of mitral regurgitation, euvolemic. Goal is good blood pressure control. 4. History of CVA/TIAs: I spoke with the patient. She is not on any anti- platelets or statin. She takes herbal remedies and does not want to be started on these medications. 5. History of peripheral vascular disease: Again not on anti-platelet or statin. 6. Bunion removal on 03/18/2017. Complete course of Keflex tomorrow. Podiatry will follow up for suture removal 03/27. 7. Accelerated hypertension: on ARB, but BP range 1501-70s here. Recommend starting a low-dose Norvasc, but patient declined. She wants to follow up with her PCP. I told her to monitor for chest pain, headache. 8. Deconditioning: Patient is cleared with PT today. We will send home with physical therapy. DISPOSITION: Patient stable for discharge. NEW MEDICATIONS: None. FOLLOW UP: 1. Podiatry on March 27 for suture removal. 2. Primary care physician for blood pressure check. /[id number]/MODL MTDD
--- NOTE | 2017-03-23 16:07 | ASMTCMCOM ---
CM Note CM Note Notes: 03/23/2017 Case Management Note Met w/ pt to discuss d/c poc. Pt unwilling to stay in SNF for 30 days, eliminating possible SNF rehab placement. Notified Rosemarie at [facility] [phone]. Rosemarie to assess for increase in Medicaid HCBS services. Pt utilizes a nonskilled school childcare attendant 6 hours a week for light housekeeping, meal prep and errand running. Pt plans for julia Stanford [phone] or Noam Garcia [phone] to transport home. Arranged for [facility] RN and PT to start services at d/c. Rosemarie from [facility] notified. Case Management d/c poc: home with [facility] home health RN and PT when medically stable. Case Management to follow. Date Signed: 03/23/2017 04:06 PM Electronically Signed By:Mavis Araya RN
[2017-03-23] MEDS: CHOLECALCIFEROL VIT D3 1,000 UNITS TAB PO SCH (21:13)
[2017-03-24] MEDS: IBUPROFEN 200 MG TAB PO SCH ×3 (00:30→06:19)
[2017-03-24 09:19] VITALS: TEMP 97.4
[2017-03-24] MEDS: TELMISARTAN 40 MG TAB PO SCH (09:36)
[2017-03-24] MEDS: CEPHALEXIN 500 MG CAP PO SCH (09:37)
[2017-03-24] MEDS: ASCORBIC ACID 500 MG TAB PO SCH (09:37)
[2017-03-24] MEDS: VITAMIN B COMPLEX 1 EA CAP/TAB PO SCH (09:37)
[2017-03-24] MEDS: ENOXAPARIN 40 MG/0.4 ML SYR SC SCH (09:37)
[2017-03-24] MEDS: NATURE THROID PO SCH (09:47)
--- NOTE | 2017-03-24 10:20 | PDIAF ---
- Diagnosis Diagnosis: syncope Code Status: Full Code - Medication Management Discharge Medications: Medications to Continue on Transfer Ascorbic Acid [Vitamin C 500 mg (*)] 500 mg PO TID 11/09/15 [Last Taken Unknown] Cholecalciferol Vit D3 [Vitamin D3 (*)] 5,000 units PO HS 11/09/15 [Last Taken Unknown] Nattokinase 1 tab PO HS 11/10/15 [Last Taken Unknown] Telmisartan [Micardis 40 mg (*)] 80 mg PO DAILY 03/18/17 [Last Taken 03/18/17] Vitamin B Complex [B Complex] 1 each PO DAILY 03/18/17 [Last Taken Unknown] Herbals/Supplements -Info Only 1 each PO DAILY 03/19/17 [Last Taken Unknown] Nature-Throid 113.75 1 each PO DAILY 03/19/17 [Last Taken 03/18/17] Serrapeptase 1 each PO DAILY 03/19/17 [Last Taken Unknown] Discharge Medications: Refer to the Discharge Home Medication list for PRN reason. - Orders Services needed: Home Care, Physical Therapy Home Care Face to Face: I certify that this patient was under my care and that I had the required [id number] encounter meeting the encounter requirements on the discharge day. My findings support the fact that the patient is homebound as defined in Home Care Face to Face Continued: CMS Chapter 7 Medicare Benefits Manual 30.1.1 , The condition of the patient is such that there exists a normal inability to leave home and consequently, leaving home would require a considerable and taxing effort. Diet Recommendation: no restrictions on diet Diet Texture: Regular Texture Diet - Follow Up Care Current Providers and Referrals: Mikhail Kamara DPM [Doctor of Podiatric Medicine] - 3-5 days (For suture removal) Patient,NotPresent [Unknown] - As per Instructions
--- NOTE | 2017-03-24 10:23 | HOSPPROG ---
Hospitalist Progress Note Assessment/Plan: #Vasovagal syncope: in the setting of N/V and opiates. No ischemic EKG changes #h/o MR: euvolemic #h/o CVAs/TIAs: not on antiplatelet or statin, per her choice #h/o PVD: she does not want to take antiplatelet or statin #Bunion removal: s/p 03/18. Keflex. Suture removal 03/27 #Accelerated HTN: on sartan. Suggested adding Norvasc, but she declined, I explained risk for CVA/[place] and she acknowledged #Deconditioning: awaiting insurance clearance for rehab #DVT ppx: lovenox #Disp: DC today Subjective: no ALALN or CP Objective: Vital Signs Temp Pulse Resp BP Pulse Ox 36.3 C 91 14 161/89 H 92 03/24/17 08:00 03/24/17 08:00 03/24/17 08:00 03/24/17 08:00 03/24/17 08:00 03/23/17 03/24/17 03/25/17 05:59 05:59 05:59 Intake Total 550 1500 Output Total 2600 2300 Balance -205 -800 - Physical Exam Constitutional: no apparent distress Eyes: PERRL Ears, Nose, Mouth, Throat: moist mucous membranes Cardiovascular: regular rate and rhythym, No edema Respiratory: no respiratory distress Gastrointestinal: normoactive bowel sounds Genitourinary: no bladder fullness Skin: warm Musculoskeletal: other (right foot dressed, CDI) Neurologic: AAOx3, CN II-XII Intact Psychiatric: interacting appropriately ICD10 Worksheet Patient Problems: Problems Problem Status Onset Syncope Acute Vomiting Acute CVA (cerebral vascular accident) Acute Carotid stenosis Acute Cellulitis Acute Peripheral vascular disease Acute
--- NOTE | 2017-03-24 10:47 | GDS ---
[f rep st] DISCHARGE SUMMARY Please see full discharge summary dated March 23, 2017. There have been no changes overnight. She stayed in the hospital because she did not have her caregivers or home care set up. She will be sen t home with home PT. She will resume Keflex for 1 more day to complete a total of 7 days after her b union removal. FOLLOWUP: 1. Dr. Kamara with podiatry for suture removal. 2. Primary care physician for blood pressure. /[id number]/MODL
--- NOTE | 2017-03-24 10:48 | ASMTCMCOM ---
CM Note CM Note Notes: CM Discharge Note: Patient to discharge home today. Has two caregivers - Noam will pick and shovel man patient at [facility] and transport home. [facility] PT/RN will see patient at home, I notified Tabitha @[facility] that start of care is tomorrow. JESUSITA Abreu will call report to [facility]. Per CM note yesterday, patient will receive increased HCBS hours through [employer]icaid upon arrival home. Date Signed: 03/24/2017 10:48 AM Electronically Signed By:Alana Greenberg RN
[2017-03-24 11:20] VITALS: BP 145/79; PULSE 92; RESP 16; O2SAT 93
== END 2017-03-24 12:15 | DRG 312 ==
LOC: EDUNIT# → F2W 03-19 04:55 → OBSVTOIN 03-19 10:40
PROVIDERS: ADMIT Student in an Organized Health Care Education/Training Program; ATTEND Student in an Organized Health Care Education/Training Program
DX: R55 Syncope and collapse (principal); R11.2 Nausea with vomiting, unspecified; T40.4X5A Adverse effect of other synthetic narcotics, initial encounter; R53.1 Weakness; I10 Essential (primary) hypertension; E06.3 Autoimmune thyroiditis; I73.9 Peripheral vascular disease, unspecified; I34.0 Nonrheumatic mitral (valve) insufficiency; Z86.73 Personal history of transient ischemic attack (TIA), and cerebral infarction without residual deficits
CPT/HCPCS: 97116-GP; 97161-GP; 97165-GO; 97530-GO; 97530-GP; 97535-GO; G0378; G8978-GP-CJ; G8979-GP-CI; G8980-GP-CI; G8987-GO-CJ; G8988-GO-CH; J1650; J2405

== ENCOUNTER → 2017-05-08 | Outpatient (CLI) | payer OTHER | LOC: GIMAGING 14:23 | PROVIDERS: ATTEND Nurse Practitioner | DX: J40 Bronchitis, not specified as acute or chronic (principal) | CPT/HCPCS: 71020-PO ==

== ENCOUNTER 2017-08-15 18:28 | Emergency (ER) | payer OTHER, MEDICAID ==
[2017-08-15 18:39] VITALS: TEMP 98.1
--- NOTE | 2017-08-15 18:53 | CPEKG ---
Heart Rate: 87 RR Interval: 690 P-R Interval: 184 QRSD Interval: 92 QT Interval: 404 QTC Interval: 486 P Jewell: 74 QRS Jewell: 62 T Wave Jewell: 54 EKG Severity - BORDERLINE ECG - EKG Impression: SINUS RHYTHM EKG Impression: BORDERLINE PROLONGED QT INTERVAL Electronically Signed By: Klaudia Boss 15-Aug-2017 23:02:14
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
[2017-08-15] MEDS ORDERED: ONDANSETRON 4 MG/2 ML VIAL ONE (19:17)
[2017-08-15] MEDS ORDERED: ONDANSETRON 4 MG/2 ML VIAL IVP ONE (19:18)
[2017-08-15 19:23] LABS: PLATELET COUNT 235 10^3/uL (150-400)
[2017-08-15] MEDS ORDERED: ALTEPLASE 100 MG/100 ML VIAL IV ONE ×3 (19:26→19:51)
[2017-08-15 19:34] LABS: INR 0.9 (0.83-1.16); PROTIME(PATIENT) 12.4 SEC (12.0-15.0)
[2017-08-15] MEDS ORDERED: LABETALOL HCL 5 MG/ML 20 ML MDV ONE (19:46)
[2017-08-15] MEDS ORDERED: niCARdipine/NACL 200 ML IV ONE (19:50)
[2017-08-15] MEDS ORDERED: LABETALOL HCL 5 MG/ML 20 ML MDV IVP ONE ×2 (19:50→19:54)
[2017-08-15] MEDS ORDERED: NS 50 ML IV ONE (19:51)
[2017-08-15] MEDS ORDERED: ALTEPLASE 1 MG/ML SYR IV ONE (19:51)
[2017-08-15 20:32] VITALS: BP 144/101
[2017-08-15 21:26] VITALS: PULSE 80; RESP 16; O2SAT 97
== END 2017-08-15 20:40 | disposition short-term general hospital (02) ==
LOC: EDUNIT#
DX: I63.9 Cerebral infarction, unspecified (principal); R11.2 Nausea with vomiting, unspecified; I10 Essential (primary) hypertension; Z91.040 Latex allergy status
CPT/HCPCS: 37195; 70450; 93005; 96365; 96375; 99291; J2405; J2997; 82947-QW

== ENCOUNTER 2018-02-12 15:30 | Observation (INO) | payer OTHER, MEDICAID ==
--- NOTE | 2018-02-12 15:51 | EDPHY ---
HPI/HX/ROS/PE/MDM Narrative: CHIEF COMPLAINT: Bilateral weakness and headache HISTORY OF PRESENT ILLNESS: The patient is a 78 y/o female with a history of a stroke resulting in left- sided weakness, a carotid endartectomy, hypertension, and rheumatoid arthritis complaining of worsening left-sided weakness, right-sided weakness and a headache onset 3 days ago. On February 02, she was placed on a Prednisone taper. Since starting the Prednisone her caregiver has noticed that the patient' s weakness and RA symptoms have worsened. For the last 3 days, the patient's caregiver has noticed that the patient has been leaning to the right while using her walker. Today the patient started bumping into objects with her walker and her caregiver thought that the patient's depth perception was off. The patient states that she was leaning to the right because her left side felt weaker than normal. In addition to the weaker left side, she had some numbness and tingling in her right toes. The patient denies feeling weak in her right side. She also has had blurry vision and a weaker voice associated with her symptoms. She denies double vision, difficulty with her peripheral vision, flashes of light in her vision, difficulty thinking of words. Today her symptoms continued and she also developed a headache which felt like a "pre- stroke" headache. Due to all of these symptoms, she was advised to present to the emergency department by her primary care provider. No fever, chills, chest pain, shortness of breath, palpitations, vomiting, diarrhea, urinary complaints, lightheadedness. REVIEW OF SYSTEMS: Aside from elements discussed in the HPI, a comprehensive 10 system review of systems was reviewed and is negative. 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 HEENT: Atraumatic. Eyes: No icterus, no injection. Mouth: moist mucous membranes. No erythema or lesions. Neck: tenderness at base of her occiput, supple with no adenopathy. LUNGS: Clear to auscultation bilaterally anteriorly, no wheezes, rhonchi or rales. CARDIAC: Regular rate and rhythm, no rubs, murmurs or gallops. ABDOMEN: Soft, nontender, nondistended, bowel sounds normal. BACK: No CVA tenderness. EXTREMITIES: No trauma. No edema. Range of motion is normal throughout. NEURO: Alert and oriented, cranial nerves II through XII are intact. 3/5 weakness in the left extremities, questionable mild weakness in right extremities. Difficulty with [id number] on the left. Some difficulty with [id number]-nn-zhcc in the right. Sensation intact to light touch. Sensory is intact. SKIN: Warm and dry, no rash. PSYCHIATRIC: Normal mentation, no agitation. Portions of this note were transcribed by a associate medical director. I personally performed a history, physical exam, medical decision making, and confirmed accuracy of information the transcribed note. ED Course: The patient is a 78 y/o female with a history of a stroke resulting in left- sided weakness and rheumatoid arthritis presenting with worsening left-sided weakness, right-sided weakness and a headache onset 3 days ago. On exam she has 3/5 weakness in the left extremities and questionable mild weakness in right extremities. She has difficulty with mxsguk-sn-bjir on the left and some difficulty with [id number] in the right. She also has tenderness at the base of her occiput. Her cranial nerves and sensory are intact. Labs, EKG, head CT w/o contrast, head and neck CTA's, and chest x-ray ordered. 1616: 12-LEAD EKG: Please see the full report in [facility]. My interpretation: Sinus rhythm with a rate of 93, left atrial enlargement. 1708: I spoke with Dr. Acosta, radiologist, who reports there are no acute findings on the patient's head CT; brain MRI ordered. There are also no acute findings on the patient's chest x-ray. 1731: Reassessed patient and discussed imaging findings. I have offered the patient admission for further observation and evaluation, which she is comfortable with. 1750: I consulted with the hospitalist service, Dr. Snyder accepts admission of this patient. No clear electrolyte abnormalities or infectious source to explain patient symptoms. Does not feel safe going home, too weak on left and listing to the right. Will need TIA/ CVA workup and evaluation. 1900: I spoke with the radiologist, who reports there are no acute findings on the patient's brain MRI. This patient is safe to be transferred to the floor. MDM: Differential diagnoses the patient's presenting complaints was considered including but not limited to intracranial injury, TIA, ischemic cerebrovascular accident, hemorrhagic cerebrovascular accident, hypoglycemia, complex migraine, metastases, tumor, seizure, or electrolyte abnormality - Data Points Imaging Results: Imaging Impressions Chest X-Ray 02/12/18 15:59 Impression: Stable chest with hyperexpansion and peribronchial thickening, which could be related to airways disease/COPD. Head CT 02/12/18 15:59 Impression: 1. Moderate atrophy. 2. No hemorrhage, mass effect, or definite acute peripheral infarct. 3. Stable moderate nonspecific hypodensities in the white matter of bilateral cerebral hemispheres. Differential diagnosis includes microvascular ischemic disease, post-infectious/post-inflammatory sequela, atypical demyelinating disease, or migraine-related sequela. Small white matter lacunar infarcts may also have this appearance. 4. Stable subcortical infarct right occipital lobe and small lacunar infarct right thalamus and possibly left thalamus. If symptoms worsen, additional imaging may be necessary. Findings discussed with the manager medical device with Klaudia Boss MD at 17: 08 hour, 02/12/2018. Brain MRI 02/12/18 17:36 Impression: 1. Underlying atrophy and white matter microvascular ischemic gliosis. 2. Multiple punctate areas of susceptibility artifact throughout both cerebral and cerebellar hemispheres suggestive of amyloid angiopathy. 3. Encephalomalacia of the right occipital region suggestive of prior ischemic injury. No evidence of acute cortical ischemia on diffusion-weighted imaging. Results called to Dr. Klaudia Boss at 7:00 p.m. Imaging: Discussed imaging studies w/ manager call Radiologist, I viewed and interpreted images myself Laboratory Results: Laboratory Results 02/12/18 15:50 02/12/18 15:50 02/12/18 02/12/18 02/12/18 17:55 15:53 15:50 WBC RBC Hgb Hct MCV MCH MCHC RDW Plt Count MPV Neut % (Auto) Lymph % (Auto) [place]ook[place] % (Auto) Eos % (Auto) Baso % (Auto) Nucleat RBC Rel Count Absolute Neuts (auto) Absolute Lymphs (auto) Absolute Monos (auto) Absolute Eos (auto) Absolute Basos (auto) Absolute Nucleated RBC Immature Gran % Immature Gran # Sodium 138 mEq/L mEq/L (135-145) Potassium 4.3 mEq/L mEq/L (3.3-5.0) Chloride 104 mEq/L mEq/L (97-110) Carbon Dioxide 23 mEq/l mEq/l (22-31) Anion Gap 11 mEq/L mEq/L (8-16) BUN 18 mg/dL mg/dL (7-23) Creatinine 0.7 mg/dL mg/dL (0.6-1.0) Estimated GFR > 60 Glucose 131 mg/dL H mg/dL (70-100) Calcium 9.6 mg/dL mg/dL (8.5-10.4) POC Troponin I 0.00 ng/mL ng/mL (0.00-0.08) Urine Color PALE YELLOW Urine Appearance CLEAR Urine pH 5.0 (5.0-7.5) Ur Specific [place] 1.004 (1.002-1.030) Urine Protein NEGATIVE (NEGATIVE) Urine Ketones NEGATIVE (NEGATIVE) Urine Blood NEGATIVE (NEGATIVE) Urine Nitrate NEGATIVE (NEGATIVE) Urine Bilirubin NEGATIVE (NEGATIVE) Urine Urobilinogen NEGATIVE EU EU (0.2-1.0) Ur Leukocyte Esterase NEGATIVE (NEGATIVE) Urine RBC NONE SEEN /hpf /hpf (0-3) Urine WBC 1-3 /hpf /hpf (0-3) Ur Epithelial Cells NONE SEEN /lpf /lpf (NONE-1+) Urine Glucose NEGATIVE (NEGATIVE) 02/12/18 15:50 WBC 10.00 10^3/uL H 10^3/uL (3.80-9.50) RBC 4.24 10^6/uL 10^6/uL (4.18-5.33) Hgb 14.4 g/dL g/dL (12.6-16.3) Hct 42.0 % % (38.0-47.0) MCV 99.1 fL fL (81.5-99.8) MCH 34.0 pg pg (27.9-34.1) MCHC 34.3 g/dL g/dL (32.4-36.7) RDW 12.2 % % (11.5-15.2) Plt Count 237 10^3/uL 10^3/uL (150-400) MPV 8.7 fL fL (8.7-11.7) Neut % (Auto) 85.5 % H % (39.3-74.2) Lymph % (Auto) 10.2 % L % (15.0-45.0) Rooks % (Auto) 2.9 % L % (4.5-13.0) Eos % (Auto) 0.1 % L % (0.6-7.6) Baso % (Auto) 0.4 % % (0.3-1.7) Nucleat RBC Rel Count 0.0 % % (0.0-0.2) Absolute Neuts (auto) 8.55 10^3/uL H 10^3/uL (1.70-6.50) Absolute Lymphs (auto) 1.02 10^3/uL 10^3/uL (1.00-3.00) Absolute Monos (auto) 0.29 10^3/uL L 10^3/uL (0.30-0.80) Absolute Eos (auto) 0.01 10^3/uL L 10^3/uL (0.03-0.40) Absolute Basos (auto) 0.04 10^3/uL 10^3/uL (0.02-0.10) Absolute Nucleated RBC 0.00 10^3/uL 10^3/uL (0-0.01) Immature Gran % 0.9 % % (0.0-1.1) Immature Gran # 0.09 10^3/uL 10^3/uL (0.00-0.10) Sodium Potassium Chloride Carbon Dioxide Anion Gap BUN Creatinine Estimated GFR Glucose Calcium POC Troponin I Urine Color Urine Appearance Urine pH Ur Specific [place] Urine Protein Urine Ketones Urine Blood Urine Nitrate Urine Bilirubin Urine Urobilinogen Ur Leukocyte Esterase Urine RBC Urine WBC Ur Epithelial Cells Urine Glucose Point of Care Test Results: Chemistry 02/12/18 15:53 POC Troponin I 0.00 ng/mL ng/mL (0.00-0.08) General Time Seen by Provider: 02/12/18 15:41 Initial Vital Signs: Initial Vital Signs Temperature (C) 36.2 C 02/12/18 15:51 Heart Rate 100 02/12/18 15:51 Respiratory Rate 16 02/12/18 15:51 Blood Pressure 145/127 H 02/12/18 15:51 O2 Sat (%) 97 02/12/18 15:51 O2 Delivery Mode Room Air Allergies/Adverse Reactions: Iodine and Iodide Containing Produc [Iodine and Iodide Containing Products] Allergy (Unknown, Unverified 03/24/17 14:37) aspirin Allergy (Verified 03/18/17 21:04) Barbiturates Allergy (Verified 03/18/17 21:04) chloramphenicol Allergy (Verified 03/18/17 21:04) corn Allergy (Verified 03/18/17 21:04) lactose Allergy (Verified 03/18/17 21:04) Latex, Natural Rubber Allergy (Verified 03/18/17 21:04) mercury (elemental) Allergy (Verified 03/18/17 21:04) morphine Allergy (Verified 03/18/17 21:04) Penicillins Allergy (Verified 03/18/17 21:04) Sugars, Metabolically Active Allergy (Verified 03/18/17 21:04) Sulfa (Sulfonamide Antibiotics) Allergy (Verified 03/18/17 21:04) tetracycline Allergy (Verified 03/18/17 21:04) CONTRAST DYES Allergy (Uncoded 03/18/17 21:04) gluten Allergy (Uncoded 03/18/17 21:04) opiates Allergy (Uncoded 04/10/17 11:58) Home Medications: Medication Instructions Recorded Bevacizumab [Avastin] 1.25 mg MISC Q42D 02/12/18 Herbals/Supplements -Info Only 1 ea PO DAILY 02/12/18 Lumbrokinase 1 cap PO DAILY@1900 02/12/18 Marcozyme 2 tab-cap PO QID 02/12/18 Serrapeptase 1 cap PO DAILY 02/12/18 Telmisartan 80 mg PO DAILY 02/12/18 Thyroid [[place] Thyroid 60 MG (*)] 90 mg PO DAILY 02/12/18 predniSONE 5 mg PO DAILY #5 02/13/18 Departure - Departure Disposition: [facility] In[facility] Acute Clinical Impression: Weakness, rule out stroke Condition: Fair Report Scribed for: Klaudia Boss Report Scribed by: Nina Claudio Date of Report: 02/12/18 Time of Report: 16:06
[2018-02-12 16:07] LABS: PLATELET COUNT 237 10^3/uL (150-400)
[2018-02-12] MEDS ORDERED: ONDANSETRON 4 MG/2 ML VIAL IVP PRN (21:17)
[2018-02-12] MEDS ORDERED: ACETAMINOPHEN 325 MG TAB PO PRN (21:17)
[2018-02-12] MEDS ORDERED: ONDANSETRON DISINTEGRATING 4 MG TAB PO PRN (21:17)
--- NOTE | 2018-02-12 21:26 | PDGENHP ---
History and Physical - Chief Complaint left sided weakness, progressive - History of Present Illness 78 y female with hx of several CVA's and residual left sided weakness p/w progressive left upper and left lower extremity weakness over the past few weeks as well mild weakness to the right upper and lower extremity. She has had extensive consultations in the recent weeks to include visits with her PCP, Neurology, Rheumatology. Dr. Guerra who saw her a few weeks ago did not believe that her sx were due to CVA. She had an elevated POOJA and was seen by Rheum and diagnosed with RA. At that time the plan was to have Methotrexate and other agent but she refused and was started on low dose steroids. Since starting the steroids, she reports that her weakness has continued to progress and this ultimately led her to go the ER. She has also c/o of intermittent ALLAN. In the ER, she had CT of the brain and MRI and these were negative. BP has been noted to be elevated. She does not have any facial drooping She has not had any fever. She does not have any resp sx's. She has no swallowing issues. No visual deficits. 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 afterwards FmHx: non contributory History Information - Allergies/Home Medication List Allergies/Adverse Reactions: Iodine and Iodide Containing Produc [Iodine and Iodide Containing Products] Allergy (Unknown, Unverified 03/24/17 14:37) aspirin Allergy (Verified 03/18/17 21:04) Barbiturates Allergy (Verified 03/18/17 21:04) chloramphenicol Allergy (Verified 03/18/17 21:04) corn Allergy (Verified 03/18/17 21:04) lactose Allergy (Verified 03/18/17 21:04) Latex, Natural Rubber Allergy (Verified 03/18/17 21:04) mercury (elemental) Allergy (Verified 03/18/17 21:04) morphine Allergy (Verified 03/18/17 21:04) Penicillins Allergy (Verified 03/18/17 21:04) Sugars, Metabolically Active Allergy (Verified 03/18/17 21:04) Sulfa (Sulfonamide Antibiotics) Allergy (Verified 03/18/17 21:04) tetracycline Allergy (Verified 03/18/17 21:04) CONTRAST DYES Allergy (Uncoded 03/18/17 21:04) gluten Allergy (Uncoded 03/18/17 21:04) opiates Allergy (Uncoded 04/10/17 11:58) Home Medications: Bevacizumab [Avastin] 1.25 mg MISC Q42D 02/12/18 [Last Taken 01/20/18] Herbals/Supplements -Info Only 1 ea PO DAILY 02/12/18 [Last Taken 02/12/18] Lumbrokinase 1 cap PO DAILY@1900 02/12/18 [Last Taken 02/11/18] Marcozyme 2 tab-cap PO QID 02/12/18 [Last Taken 02/12/18 11:00] Serrapeptase 1 cap PO DAILY 02/12/18 [Last Taken 02/12/18 06:00] Telmisartan 80 mg PO DAILY 02/12/18 [Last Taken 02/12/18 06:00] Thyroid [[place] Thyroid 60 MG (*)] 90 mg PO DAILY 02/12/18 [Last Taken 02/12/18 06:00] predniSONE 7.5 mg PO DAILY 02/12/18 [Last Taken 02/12/18 06:00] I have personally reviewed and updated: medical history, social history - Past Medical History arthritis - Surgical History Additional surgical history: Bunion removal R foot 03/18/17 - Family History Positive for: cancer, diabetes type II, CAD - Social History Smoking Status: Never smoked Review of Systems Review of Systems: ROS: 10pt was reviewed & negative except for what was stated in HPI & below Physical Exam Physical Exam: Temp Pulse Resp BP Pulse Ox 36.2 C 75 16 188/98 H 95 02/12/18 20:26 02/12/18 20:26 02/12/18 20:26 02/12/18 20:26 02/12/18 20:26 O2 (L/minute) 2 Constitutional: no apparent distress Eyes: PERRL Ears, Nose, Mouth, Throat: moist mucous membranes, hearing normal Cardiovascular: regular rate and rhythym, No edema Respiratory: no respiratory distress, no rales or rhonchi, clear to auscultation Gastrointestinal: normoactive bowel sounds, No distension Skin: warm Musculoskeletal: generalized weakness Neurologic: AAOx3, CN II-XII Intact, other (LUE and LLE 3/5 strength. RUE 4-5/5 , RLE 4-5/5), No facial droop Psychiatric: interacting appropriately, not anxious, No encephalopathic Lymph, Heme, Immunologic: No petechiae Lab Data & Imaging Review 02/12/18 15:50 02/12/18 15:50 WBC 10.00 10^3/uL (3.80-9.50) H 02/12/18 15:50 RBC 4.24 10^6/uL (4.18-5.33) 02/12/18 15:50 Hgb 14.4 g/dL (12.6-16.3) 02/12/18 15:50 Hct 42.0 % (38.0-47.0) 02/12/18 15:50 MCV 99.1 fL (81.5-99.8) 02/12/18 15:50 MCH 34.0 pg (27.9-34.1) 02/12/18 15:50 MCHC 34.3 g/dL (32.4-36.7) 02/12/18 15:50 RDW 12.2 % (11.5-15.2) 02/12/18 15:50 Plt Count 237 10^3/uL (150-400) 02/12/18 15:50 MPV 8.7 fL (8.7-11.7) 02/12/18 15:50 Neut % (Auto) 85.5 % (39.3-74.2) H 02/12/18 15:50 Lymph % (Auto) 10.2 % (15.0-45.0) L 02/12/18 15:50 Cache % (Auto) 2.9 % (4.5-13.0) L 02/12/18 15:50 Eos % (Auto) 0.1 % (0.6-7.6) L 02/12/18 15:50 Baso % (Auto) 0.4 % (0.3-1.7) 02/12/18 15:50 Nucleat RBC Rel Count 0.0 % (0.0-0.2) 02/12/18 15:50 Absolute Neuts (auto) 8.55 10^3/uL (1.70-6.50) H 02/12/18 15:50 Absolute Lymphs (auto) 1.02 10^3/uL (1.00-3.00) 02/12/18 15:50 Absolute Monos (auto) 0.29 10^3/uL (0.30-0.80) L 02/12/18 15:50 Absolute Eos (auto) 0.01 10^3/uL (0.03-0.40) L 02/12/18 15:50 Absolute Basos (auto) 0.04 10^3/uL (0.02-0.10) 02/12/18 15:50 Absolute Nucleated RBC 0.00 10^3/uL (0-0.01) 02/12/18 15:50 Immature Gran % 0.9 % (0.0-1.1) 02/12/18 15:50 Immature Gran # 0.09 10^3/uL (0.00-0.10) 02/12/18 15:50 Sodium 138 mEq/L (135-145) 02/12/18 15:50 Potassium 4.3 mEq/L (3.3-5.0) 02/12/18 15:50 Chloride 104 mEq/L (97-110) 02/12/18 15:50 Carbon Dioxide 23 mEq/l (22-31) 02/12/18 15:50 Anion Gap 11 mEq/L (8-16) 02/12/18 15:50 BUN 18 mg/dL (7-23) 02/12/18 15:50 Creatinine 0.7 mg/dL (0.6-1.0) 02/12/18 15:50 Estimated GFR > 60 02/12/18 15:50 Glucose 131 mg/dL (70-100) H 02/12/18 15:50 Calcium 9.6 mg/dL (8.5-10.4) 02/12/18 15:50 POC Troponin I 0.00 ng/mL (0.00-0.08) 02/12/18 15:53 Urine Color PALE YELLOW 02/12/18 17:55 Urine Appearance CLEAR 02/12/18 17:55 Urine pH 5.0 (5.0-7.5) 02/12/18 17:55 Ur Specific [place] 1.004 (1.002-1.030) 02/12/18 17:55 Urine Protein NEGATIVE (NEGATIVE) 02/12/18 17:55 Urine Ketones NEGATIVE (NEGATIVE) 02/12/18 17:55 Urine Blood NEGATIVE (NEGATIVE) 02/12/18 17:55 Urine Nitrate NEGATIVE (NEGATIVE) 02/12/18 17:55 Urine Bilirubin NEGATIVE (NEGATIVE) 02/12/18 17:55 Urine Urobilinogen NEGATIVE EU (0.2-1.0) 02/12/18 17:55 Ur Leukocyte Esterase NEGATIVE (NEGATIVE) 02/12/18 17:55 Urine RBC NONE SEEN /hpf (0-3) 02/12/18 17:55 Urine WBC 1-3 /hpf (0-3) 02/12/18 17:55 Ur Epithelial Cells NONE SEEN /lpf (NONE-1+) 02/12/18 17:55 Urine Glucose NEGATIVE (NEGATIVE) 02/12/18 17:55 Assessment & Plan Assessment: #Progressive Left sided Weakness (Acute) #Headache #Recently diagnosed RA #HTN, on Telmisartan #Hypothyroidism Plan: The etiology of her sx's are unclear. I do not suspect that she has had a CVA. In the differential would be other Neuro illnesses including MS. Neuro to see tomorrow. Consult placed in computer. Further w/u including possible imaging of cervical spine, thoracic, and lumbar per their recommendation. She reports that she is unable to take Aspirin and in [place] of this is on enzymes which have been prescribed by an "Environmental Medicine Physician" in [place]. These enzymes will be continued Check inflammatory markers cont prednisone taper manage HTN, cont with home meds plus Hydralazine PRN check TSH SCD's
--- NOTE | 2018-02-13 | CPEKG ---
Test Reason : OPEN Blood Pressure : / mmHG Vent. Rate : 093 BPM Atrial Rate : 093 BPM P-R Int : 163 ms QRS Dur : 081 ms QT Int : 363 ms P-R-T Axes : 078 069 072 degrees QTc Int : 452 ms Sinus rhythm Left atrial enlargement Confirmed by Klaudia Boss ([id number]) on 02/13/2018 12:00:35 AM Referred By: Confirmed By:Klaudia Boss
[2018-02-13] MEDS: hydrALAZINE 20 MG/ML VIAL IVP PRN ×2 (00:13→10:19)
[2018-02-13] MEDS ORDERED: hydrALAZINE 20 MG/ML VIAL IVP ONE (00:58)
[2018-02-13] MEDS: [UNRECOGNIZED DRUG - OTHER] PO SCH ×2 (05:09→12:03)
[2018-02-13 05:21] LABS: PLATELET COUNT 197 10^3/uL (150-400)
[2018-02-13 08:34] VITALS: BP 176/94
[2018-02-13] MEDS ORDERED: THYROID 60 MG TAB PO SCH (09:00)
[2018-02-13] MEDS ORDERED: TELMISARTAN 40 MG TAB PO SCH (09:00)
[2018-02-13] MEDS ORDERED: Herbals/Supplements -Info Only PO SCH (09:00)
[2018-02-13] MEDS ORDERED: Serrapeptase PO SCH (09:00)
[2018-02-13] MEDS: predniSONE 5 MG TAB PO SCH ×2 (10:01→10:10)
[2018-02-13] MEDS ORDERED: predniSONE 5 MG TAB PO SCH (13:17)
--- NOTE | 2018-02-13 13:33 | GDS ---
DISCHARGE DIAGNOSES: 1. Weakness, left-sided, progressive after previous stroke. 2. History of several cerebrovascular accidents with residual left-sided weakness. 3. Recently diagnosed rheumatoid arthritis, on prednisone. 4. History of kidney infections. 5. Hypertension. 6. History of carotid embolism. 7. Parker's thyroiditis. CONSULTATIONS: Dr. Yoav Guerra, neurology. PROCEDURES DONE: Brain MRI, head CT. 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 She has had progressive left upper and left lower ex tremity weakness over the past several weeks and has been followed closely by her neurologist, Dr. Ra coronado, as an outpatient. Recently, she was diagnosed with rheumatoid arthritis and was started on predni sone for treatment on February 02. She is currently in the midst of a taper. However, during that t klever, she has noted the progressive weakness. Dr. Guerra felt that it was likely secondary to the steroi ds, and the patient is willing to discontinue this after a short taper. Today, she is feeling better and ready to go home, however, still being weak. She does have home care set up as well as PT, OT, and friends to help with caregiving while she is debilitated. CONDITION ON DISCHARGE: VITAL SIGNS: Stable. She is afebrile. Heart rate 81, blood pressure eleva dejan at 176/94, respirations 16, she is 98% on 2 L. GENERAL: She is a very pleasant 78-year-old woma n. She is alert. She continues to have some residual left-sided weakness, but is anxious to get lisa e. She has caregivers in place as well as home care. DISCHARGE MEDICATIONS: Please see discharge medication list. FOLLOWUP INSTRUCTION: She will be discharged home with her own home care already in place. She has caregivers set up to help her out. I will have Physical [facility] She will need close followup for her blood pressure as well as her neurologic issues and her rheu matoid arthritis. She will resume care with Dr. Guerra, and she will follow up with Dr. Cook, her PCP , post hospitalization as well. /[id number]/MODL
--- NOTE | 2018-02-13 13:38 | GCON ---
NEUROLOGY CONSULT DATE OF CONSULTATION: 02/13/2018 REFERRING PHYSICIAN: Chase Snyder MD CHIEF COMPLAINT: Acute on chronic left-sided weakness. 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 She had a previous right hemisphere stroke and status post right endarterectomy with chronic left-sided weakness. The patient was recently diagnosed with rheumatoid arthritis with a rheumatoid factor of 362. She saw Rheumatology, who recommended methotrexate. She refused to go on methotrexate based on her previous sensitivity to medications, and they put her on a prednisone taper starting on February 02. The patient almost immediately noticed multiple symptoms since starting prednisone. Indeed, I saw her recently as an outpatient, and we discussed this very thing. Specifically, she has felt some urinary symptoms and more weakness than usual on the left from her previous stroke. Again, she has baseline left-sided weakness. We discussed that this may be post-stroke recrudescence from systemic inflammation from her rheumatoid arthritis and/or the prednisone possible side effects. In any case, the symptoms continued, and she was concerned, so she came to the ED to rule out an acute stroke. MRI brain was done yesterday afternoon and, fortunately, there is no evidence of acute infarct. She has multiple areas of microvascular changes and encephalomalacia from previous infarct. In addition, she has some evidence of amyloid angiopathy with micro hemorrhage evidence. REVIEW OF SYSTEMS: A 10-point review of systems was done and only pertinent to the HPI. For past medical history, social history, family history, home medications, allergies, see Dr. Snyder's H and P. PHYSICAL EXAM: VITAL SIGNS: Blood pressure is 170s right now. She is afebrile. Respirations 16. GENERAL: She is awake and alert, very pleasant. NEURO: Higher mental function, no aphasia. Cranial nerve exam normal 2-7. No dysarthria. Motor exam: She does have chronic left-sided weakness, most prominently in her left upper extremity and some arthritic changes in her joints in her fingers and hands. IMPRESSION/PLAN: 1. Chronic cerebral infarct. 2. Cerebral amyloid angiopathy 2. Rheumatoid arthritis. Fortunately, there is no evidence of acute infarct on MRI brain. She does have some amyloid angiopathy, which we reviewed. The patient has refused antiplatelet therapy in the past and is on an alternative medicine called seropeptase per her and her homeopathic provider's choice. We did discuss the risks, benefits, and alternatives of anti-thrombotics in the setting of ischemic risk versus hemorrhagic risk in her specific scenario. She understood and appreciated the counseling. It appears she is having some side effects from the prednisone with post-stroke recrudescence manifesting as some increased chronic left-sided weakness. As she was already scheduled to taper off the prednisone, we will accelerate this taper. Specifically, I have asked her to take 1 tablet for 5 days and then discontinue the prednisone. She is agreeable. She will continue outpatient physical therapy and home care. She will have close followup with her primary care physician and rheumatology, and I will see her as well as an outpatient. She will likely discharge later today. No further recommendations. She will return to the emergency department for any acute neurologic symptoms. Please do not hesitate to call for any questions or changes in neurologic status with this patient. Seventy total minutes floor time reviewing outpatient and inpatient records, MRI brain, coordination of care, and direct counseling with the patient. /[id number]/MODL MTDD
--- NOTE | 2018-02-13 15:25 | ASMTCMCOM ---
CM Note CM Note Notes: Pt medically stable for d/c back to home of [facility] with 24/hr care and continued home care. Pt in for weakness, stroke symptoms. Neurology consulted. Pt to follow up with neurology and PCP outpatient. No CM d/c needs identified. Date Signed: 02/13/2018 03:24 PM Electronically Signed By:RORY Eldridge
--- NOTE | 2018-02-13 15:26 | ASMTLACE ---
LACE Length of stay for Answers: 2 days current admission Acuity / Level of Answers: No Care: Did the patient have an inpatient admission? Comorbidities - select Answers: Cerebrovascular disease all that apply (CVA, TIA, aneurysms, vasc ular dementia) Other Notes: RA, HTN # of Emergency department Answers: 1-2 visits in the last 6 months Score: 5 Date Signed: 02/13/2018 03:25 PM Electronically Signed By:RORY Eldridge
[2018-02-13] MEDS ORDERED: [UNRECOGNIZED DRUG - OTHER] PO SCH (19:00)
[2018-03-04] MEDS ORDERED: BEVACIZUMAB MISC SCH (09:00)
== END 2018-02-13 15:32 | disposition home health service (06) ==
LOC: F3N 20:00
PROVIDERS: ADMIT Family Medicine; ATTEND Internal Medicine
DX: R53.1 Weakness (principal); I69.354 Hemiplegia and hemiparesis following cerebral infarction affecting left non-dominant side; M06.9 Rheumatoid arthritis, unspecified; I68.0 Cerebral amyloid angiopathy; R51 Headache; I10 Essential (primary) hypertension; E06.3 Autoimmune thyroiditis; Z87.448 Personal history of other diseases of urinary system; Z82.49 Family history of ischemic heart disease and other diseases of the circulatory system
CPT/HCPCS: 70450; 70551; 71046; 92523; 93005; 97162; 97165; 97530; G0378; G8978; G8979; G8980; G8987; G8988; G9165; G9166; G9167; J0360; J7512; 84484-PO; 96374

== ENCOUNTER 2018-09-24 13:33 | Emergency (ER) | payer OTHER, MEDICAID ==
--- NOTE | 2018-09-24 13:53 | EDPHY ---
H & P Stated Complaint: SHOULDER PAIN S/P ACUPUNCTURE Time Seen by Provider: 09/24/18 13:39 HPI/ROS: CHIEF COMPLAINT: Right shoulder and arm pain HISTORY OF PRESENT ILLNESS: The patient is a 78-year-old female with history of rheumatoid arthritis as well as multiple CVAs with residual left-sided weakness, imbalance and hearing loss as well as carotid endarterectomy who comes to the emergency department by ambulance complaining of severe right shoulder pain that is limiting her movement. She states that she also has some pain in her entire right arm as well as in her right neck. She denies trauma. She denies fevers. She states that she does not feel paralyzed but does feel weak and has severe pain with any type of movement or palpation. She states that her pain has been mild for the last 10 days but around 1:00 a.m. This morning it became severe. She tried to go to the chair caner today but this did not make her feel any better and so her chair caner called EMS. Severity: Severe Modifying factors: None REVIEW OF SYSTEMS: Constitutional: denies: chills, fever, recent illness, recent injury EENTM: denies: blurred vision, double vision, nose congestion Respiratory: denies: cough, shortness of breath Cardiac: denies: chest pain, irregular heart rate, lightheadedness, palpitations Gastrointestinal/Abdominal: denies: abdominal pain, diarrhea, nausea, vomiting, blood streaked stools Genitourinary: denies: dysuria, frequency, hematuria, pain Musculoskeletal: See HPI Skin: denies: lesions, rash, jaundice, bruising Neurological: See HPI denies: headache, numbness, paresthesia, tingling, dizziness Hematologic/Lymphatic: denies: blood clots, easy bleeding, easy bruising Immunologic/allergic: denies: HIV/AIDS, transplant 10 systems reviewed and negative except as noted EXAM: GENERAL: Well-appearing, well-nourished and in no acute distress. HEAD: Atraumatic, normocephalic. EYES: Pupils equal round and reactive to light, extraocular movements intact, sclera anicteric, conjunctiva are normal. ENT: TMs normal, nares patent, oropharynx clear without exudates. Moist mucous membranes. NECK: Normal range of motion, supple without lymphadenopathy or JVD. LUNGS: Breath sounds clear to auscultation bilaterally and equal. No wheezes rales or rhonchi. HEART: Regular rate and rhythm without murmurs, rubs or gallops. ABDOMEN: Soft, nontender, normoactive bowel sounds. No guarding, no rebound. No masses appreciated. BACK: No CVA tenderness, no spinal tenderness, step-offs or deformities EXTREMITIES: Severe pain with any palpation of right shoulder or movement over arm. Able to flex wrist and elbows and neck without worsening of pain. NEUROLOGICAL: Cranial nerves II through XII grossly intact. Normal speech, normal gait. 5/5 strength, normal movement in all extremities, normal sensation , normal reflexes PSYCH: Normal mood, normal affect. SKIN: Warm, dry, normal turgor, no visible rashes or lesions. Source: Patient, EMS, Old records - Personal History Current Tetanus/Diphtheria Vaccine: Yes Current Tetanus Diphtheria and Acellular Pertussis (TDAP): Yes Tetanus Vaccine Date: 2014 - Medical/Surgical History Hx Asthma: No Hx Chronic Respiratory Disease: No Hx Diabetes: No Hx Cardiac Disease: Yes Hx Renal Disease: No Hx Cirrhosis: No Hx Alcoholism: No Hx HIV/AIDS: No Hx Splenectomy or Spleen Trauma: No Other PMH: kidney infections, thyroid issues-art, mercury toxicity, back fxs, HTN, TIA, stroke x 8, carotid endarterectomy, 4 KIDNEYS. Arthritis. - Family History Significant Family History: No pertinent family hx - Social History Smoking Status: Never smoked Alcohol Use: Sober Drug Use: None Constitutional: Initial Vital Signs Temperature (C) 36.6 C 09/24/18 13:39 Heart Rate 86 09/24/18 13:39 Respiratory Rate 18 09/24/18 13:39 Blood Pressure 134/98 H 09/24/18 13:39 O2 Sat (%) 96 09/24/18 13:39 O2 Delivery Mode Room Air Allergies/Adverse Reactions: Iodine and Iodide Containing Produc [Iodine and Iodide Containing Products] Allergy (Unknown, Unverified 09/24/18 13:57) aspirin Allergy (Verified 09/24/18 13:57) Barbiturates Allergy (Verified 09/24/18 13:57) chloramphenicol Allergy (Verified 09/24/18 13:57) corn Allergy (Verified 09/24/18 13:57) lactose Allergy (Verified 09/24/18 13:57) Latex, Natural Rubber Allergy (Verified 09/24/18 13:57) mercury (elemental) Allergy (Verified 09/24/18 13:57) morphine Allergy (Verified 09/24/18 13:57) Penicillins Allergy (Verified 09/24/18 13:57) prednisone Allergy (Verified 09/24/18 13:57) Sugars, Metabolically Active Allergy (Verified 09/24/18 13:57) Sulfa (Sulfonamide Antibiotics) Allergy (Verified 09/24/18 13:57) tetracycline Allergy (Verified 09/24/18 13:57) CONTRAST DYES Allergy (Uncoded 09/24/18 13:57) gluten Allergy (Uncoded 09/24/18 13:57) opiates Allergy (Uncoded 09/24/18 13:57) Home Medications: Medication Instructions Recorded Bevacizumab [Avastin] 1.25 mg MISC Q42D 02/12/18 Herbals/Supplements -Info Only 1 ea PO DAILY 02/12/18 Lumbrokinase 1 cap PO DAILY@1900 02/12/18 Marcozyme 2 tab-cap PO QID 02/12/18 Serrapeptase 1 cap PO DAILY 02/12/18 Telmisartan 80 mg PO DAILY 02/12/18 Thyroid [Patriot Thyroid 60 MG (*)] 90 mg PO DAILY 02/12/18 Aspirin 04/28/18 Medical Decision Making - Diagnostics EKG Interpretation: An EKG obtained and was read and documented in trace view. Please see trace view for full reading and report. 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 Slight interval increase in size of a small right paracentral disk protrusion at C6-C7, otherwise similar to August 21, 2013. Multilevel neural foraminal encroachment. Results called to Dr. Michael Dai at 4:30 p.m. Chest X-Ray 09/24/18 13:48 Impression: No acute findings in the chest. Shoulder X-Ray 09/24/18 14:46 Impression: Mild acromioclavicular arthrosis with no acute findings. Imaging: Discussed imaging studies w/ housecalls nurse Radiologist ED Course/Re-evaluation: Interviewing the record the patient has had a rotator cuff tear about 3 years ago and had an MRI at the time. She states that her symptoms improved without surgery. They then began hurting about 10 days ago for no obvious reason. She was repeatedly refusing pain medication but is now agreeing to take Toradol. MRI results pending. Lab work is reassuring. EKG pending. 5:00 p.m. the patient is feeling much better and moving her shoulder much easier after Toradol. Her MRI is relatively unchanged compared to 5 years ago. We discussed follow-up with Orthopedics. She declines further cardiac workup. Discussed indications for returning. She feels comfortable going home. Differential Diagnosis: Partial list of the Differential diagnosis considered include but were not limited to; shoulder pain, sprain, radiculopathy and although unlikely based on the history and physical exam, I also considered acute coronary disease, PE, infection, DVT. I discussed these differential diagnoses and the plan with the patient as well as the usual and expected course. The patient understands that the diagnosis is provisional and that in medicine we are not always correct and that further workup is often warranted. Usual and customary warnings were given. All of the patient's questions were answered. The patient was instructed to return to the emergency department should the symptoms at all worsen or return, otherwise to followup with the physician as we discussed. - Data Points Laboratory Results: Laboratory Results 09/24/18 15:27 09/24/18 15:27 09/24/18 09/24/18 09/24/18 15:27 15:27 15:27 WBC RBC Hgb Hct MCV MCH MCHC RDW Plt Count MPV Neut % (Auto) Lymph % (Auto) Starr % (Auto) Eos % (Auto) Baso % (Auto) Nucleat RBC Rel Count Absolute Neuts (auto) Absolute Lymphs (auto) Absolute Monos (auto) Absolute Eos (auto) Absolute Basos (auto) Absolute Nucleated RBC Immature Gran % Immature Gran # PT 12.5 SEC SEC (12.0-15.0) INR 0.97 (0.83-1.16) APTT 34.1 SEC SEC (23.0-38.0) Sodium 138 mEq/L mEq/L (135-145) Potassium 3.9 mEq/L mEq/L (3.5-5.2) Chloride 107 mEq/L mEq/L (97-110) Carbon Dioxide 23 mEq/l mEq/l (22-31) Anion Gap 8 mEq/L mEq/L (6-14) BUN 17 mg/dL mg/dL (7-23) Creatinine 0.7 mg/dL mg/dL (0.6-1.0) Estimated GFR > 60 Glucose 108 mg/dL H mg/dL (70-100) Calcium 9.2 mg/dL mg/dL (8.5-10.4) POC Troponin I 0.01 ng/mL ng/mL (0.00-0.08) 09/24/18 15:27 WBC 5.76 10^3/uL 10^3/uL (3.80-9.50) RBC 3.96 10^6/uL L 10^6/uL (4.18-5.33) Hgb 12.9 g/dL g/dL (12.6-16.3) Hct 37.8 % L % (38.0-47.0) MCV 95.5 fL fL (81.5-99.8) MCH 32.6 pg pg (27.9-34.1) MCHC 34.1 g/dL g/dL (32.4-36.7) RDW 13.0 % % (11.5-15.2) Plt Count 205 10^3/uL 10^3/uL (150-400) MPV 8.7 fL fL (8.7-11.7) Neut % (Auto) 66.0 % % (39.3-74.2) Lymph % (Auto) 23.3 % % (15.0-45.0) Starr % (Auto) 9.0 % % (4.5-13.0) Eos % (Auto) 1.2 % % (0.6-7.6) Baso % (Auto) 0.3 % % (0.3-1.7) Nucleat RBC Rel Count 0.0 % % (0.0-0.2) Absolute Neuts (auto) 3.80 10^3/uL 10^3/uL (1.70-6.50) Absolute Lymphs (auto) 1.34 10^3/uL 10^3/uL (1.00-3.00) Absolute Monos (auto) 0.52 10^3/uL 10^3/uL (0.30-0.80) Absolute Eos (auto) 0.07 10^3/uL 10^3/uL (0.03-0.40) Absolute Basos (auto) 0.02 10^3/uL 10^3/uL (0.02-0.10) Absolute Nucleated RBC 0.00 10^3/uL 10^3/uL (0-0.01) Immature Gran % 0.2 % % (0.0-1.1) Immature Gran # 0.01 10^3/uL 10^3/uL (0.00-0.10) PT INR APTT Sodium Potassium Chloride Carbon Dioxide Anion Gap BUN Creatinine Estimated GFR Glucose Calcium POC Troponin I Medications Given: Discontinued Medications Ketorolac Tromethamine (Toradol) 15 mg IVP EDNOW ONE Stop: 09/24/18 16:21 Last Admin: 09/24/18 16:26 Dose: 15 mg Point of Care Test Results: Chemistry 09/24/18 15:27 POC Troponin I 0.01 ng/mL ng/mL (0.00-0.08) Departure - Departure Disposition: Home, Routine, Self-Care Clinical Impression: Right shoulder pain Qualifiers: Chronicity: acute Qualified Code(s): M25.511 - Pain in right shoulder Condition: Fair Instructions: Shoulder Pain (ED) Referrals: Patient,NotPresent [Primary Care Provider] - As per Instructions Digna Segal MD [Medical Doctor] - 5-7 days, call for appt.
[2018-09-24 15:35] LABS: PLATELET COUNT 205 10^3/uL (150-400)
[2018-09-24 15:47] LABS: INR 0.97 (0.83-1.16); PROTIME(PATIENT) 12.5 SEC (12.0-15.0)
[2018-09-24] MEDS ORDERED: KETOROLAC 15 MG/1 ML SDV ONE (16:20)
[2018-09-24] MEDS ORDERED: KETOROLAC 15 MG/1 ML SDV IVP ONE (16:20)
[2018-09-24 16:51] VITALS: BP 169/98
--- NOTE | 2018-09-24 17:05 | CPEKG ---
Test Reason : OPEN Blood Pressure : / mmHG Vent. Rate : 079 BPM Atrial Rate : 079 BPM P-R Int : 179 ms QRS Dur : 099 ms QT Int : 382 ms P-R-T Axes : 070 035 034 degrees QTc Int : 438 ms Sinus rhythm Minimal ST elevation, anterior leads Confirmed by Michael Dai ([id number]) on 09/24/2018 5:05:17 PM Referred By: Michael Dai Confirmed By:Michael Dai
== END 2018-09-24 17:21 | disposition home or self-care (01) ==
LOC: EDUNIT#
DX: M25.511 Pain in right shoulder (principal); M79.601 Pain in right arm
CPT/HCPCS: 71046; 72141; 73030; 93005; 96374; 99285; J1885; 84484-ER

== ENCOUNTER → 2018-10-15 | Outpatient (CLI) | payer OTHER, MEDICAID | LOC: BMCIMAGING 11:57 | PROVIDERS: ATTEND Internal Medicine Rheumatology | DX: M05.79 Rheumatoid arthritis with rheumatoid factor of multiple sites without organ or systems involvement (principal) ==